=== PATIENT | male | born 1955 | race Caucasian/White ===

== ENCOUNTER → 2020-12-25 15:11 | Outpatient (BNVA) | payer BC, SELFPAY | PROVIDERS: Family Provider Internal Medicine Nephrology; Visit Provider Internal Medicine | DX: Z01.812 Encounter for preprocedural laboratory examination (principal); Z12.11 Encounter for screening for malignant neoplasm of colon; Z20.822 Contact with and (suspected) exposure to COVID-19 | CPT/HCPCS: 87635 ==

== ENCOUNTER 2021-01-01 08:05 | Day surgery (SDC) | payer BC, SELFPAY ==
[2020-12-28 14:06] VITALS: BMI 39.5
--- NOTE | 2021-01-01 08:15 | ANES.PREANE2 ---
Pre-Anesthetic Assessment Pre-Anesthetic Assessment: Height/Weight: Height 1.85 m Weight 136.078 kg Preop Diagnosis: screening Proposed Procedure: Operation Date: 01/01/21 09:30 Proposed Procedures p Colonoscopy 25705 Z12.11 Z86.010(Not Applicable) - Santos Sapp MD Familial anesthetic complications: none Was Beta Manuel taken within 24 hours: N/A Was Clonidine taken within 24 hours: N/A Last intake: > 8 hrs Social: Social History: Tobacco and No alcohol Exam: Pre-Anes Outpt Exam: alert, oriented x 3, clear to auscultation bilaterally and regular rate & rhythm Airway: Cervical ROM: WNL MP: 1 Dentition: Full Pulmonary: Pulmonary: COPD CV/HEM: CV/HEM: HTN GI: GI: GERD Metabolic: Metabolic: Morbid obesity Anesthetic Plan: ASA status: 2 Anesthesia: MAC Risk of > 500 ml blood loss (7ml/kg in children): No Data Anesthesia Cardiac Studies: No Data to Display
[2021-01-01 08:37] VITALS: BP 168/105; PULSE 97; RESP 18; TEMP 36.1; O2SAT 96
[2021-01-01] MEDS: sodium chloride 0.9% 1,000 ML 30 ML IV (08:46)
--- NOTE | 2021-01-01 08:52 | W.PM.OPSFHP ---
Same Day Surgery H&P Indication for Procedure/HPI DATE OF PROCEDURE: January 01, 2021 CHIEF COMPLAINT/INDICATIONFOR SURGICAL PROCEDURE: Screening PREOP DIAGNOSIS: screening PLANNED PROCEDRUE: Operation Date: 01/01/21 09:30 Proposed Procedures p Colonoscopy 65029 Z12.11 Z86.010(Not Applicable) - Santos Sapp MD Medications/Allergies* Home Medications Medication Instructions Recorded Confirmed Type hydrochlorothiazide 25 mg tablet 25 mg PO DAILY 12/20/20 01/01/21 History lisinopril 20 mg tablet 20 mg PO DAILY 12/20/20 01/01/21 History pantoprazole 40 mg tablet,delayed 40 mg PO DAILY 12/20/20 01/01/21 History release Allergies/Adverse Reactions Allergy/AdvReac Type Severity Reaction Status Date / Time Penicillins Allergy ALGY-Anaphy Verified 12/28/20 14:11 laxis Current Medications: Generic Name Dose Route Start Last Admin Trade Name Freq PRN Reason Stop Dose Admin Sodium Chloride 1,000 mls @ 30 mls/hr 01/01/21 08:15 01/01/21 08:46 Sodium Chloride 0.9% IV 01/02/21 08:14 30 mls/hr .Q24H PALAK Administration Pertinent Exam Findings alert, oriented x 3, clear to auscultation bilaterally, regular rate & rhythm, operative site marked and procedure specific exam findings Recommendations Surgery/Procedure today Coding Level of Care Code Acute [place] 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
[2021-01-01 09:55] VITALS: BP 122/69; PULSE 93; RESP 16; TEMP 36.3; O2SAT 93
[2021-01-01 10:13] VITALS: BP 135/71; PULSE 76; RESP 16; O2SAT 94
--- NOTE | 2021-01-01 18:52 | ANE.PACU2 ---
Inpatient post-anesthesia follow up: Airway intact: Yes Vital signs: Temperature 97.4 F Pulse Rate 76 Respiratory Rate 16 Blood Pressure 135/71 Pulse Oximetry 94 Oxygen Delivery Me thod Room Air Oxygen Flow Rate Fraction of Inspir ed Oxygen Hydration adequate: Yes Nausea and vomiting: No Pain level: 2 Mental status: Baseline
== END 2021-01-01 10:35 | disposition home or self-care (01) ==
PROVIDERS: Visit Provider Internal Medicine
PROC: 0DJD8ZZ Inspection of Lower Intestinal Tract, Via Natural or Artificial Opening Endoscopic (ICD-10-PCS; CPT 45378; principal; 2021-01-01 09:30)
DX: Z12.11 Encounter for screening for malignant neoplasm of colon (principal); D12.8 Benign neoplasm of rectum; K57.30 Diverticulosis of large intestine without perforation or abscess without bleeding; Z86.010 Personal history of colon polyps; Z88.0 Allergy status to penicillin
CPT/HCPCS: 45380; 88305; 96360; J2704; J7030

== ENCOUNTER → 2022-08-12 13:40 | Outpatient (BNVA) | payer BC, SELFPAY | PROVIDERS: PCP Family Medicine; Visit Provider Family Medicine | DX: I10 Essential (primary) hypertension (principal); Z76.89 Persons encountering health services in other specified circumstances; Z11.4 Encounter for screening for human immunodeficiency virus [HIV]; Z11.59 Encounter for screening for other viral diseases; Z12.5 Encounter for screening for malignant neoplasm of prostate; E83.52 Hypercalcemia; Z12.2 Encounter for screening for malignant neoplasm of respiratory organs; F17.200 Nicotine dependence, unspecified, uncomplicated; I49.9 Cardiac arrhythmia, unspecified; R06.09 Other forms of dyspnea; I48.91 Unspecified atrial fibrillation; I73.9 Peripheral vascular disease, unspecified; R39.9 Unspecified symptoms and signs involving the genitourinary system | CPT/HCPCS: 80053; 80061; 81003; 82306; 83036; 84443; 85025; 86803; 87806; G0103 ==

== ENCOUNTER 2022-08-27 13:35 | Outpatient (CLI) | payer BC, SELFPAY ==
--- NOTE | 2022-08-27 14:00 | USCV_ITS ---
Michael Joyner Age: 67 Gender: M : 1955 Exam Date: 08/27/2022 14:51 Ordering Phys: Ha Montes DO Technologist: [place] [facility] [place]: claudication FINDINGS Resting LAZARO of 0.52 on the right and 0.75 on the left Resting TBI of 0.4 on the right and 0.7 on the left PVR waveforms showing low amplitude waveforms on the right and normal amplitude waveform on the left with a loss of dicrotic notch CONCLUSIONS 1. Abnormal resting LAZARO and TBI on the right side suggesting moderately severe peripheral artery disease 2. Diminished resting LAZARO and normal resting TBI on the left side suggesting mild peripheral artery disease Dr Mercedes Estevez MD [facility] (Electronically Signed) Final Date: 27 August 2022 19:19 S
== END 2022-08-27 13:36 | disposition home or self-care (01) ==
PROVIDERS: PCP Family Medicine; Visit Provider Family Medicine
DX: I73.9 Peripheral vascular disease, unspecified (principal)
CPT/HCPCS: 93922

== ENCOUNTER 2022-09-02 14:54 | Outpatient (CLI) | payer BC, SELFPAY ==
--- NOTE | 2022-09-02 15:00 | USCV_ITS ---
Michael Joyner Age: 67 Gender: M : 1955 Exam Date: 09/02/2022 15:11 Ordering Phys: Ha Montes DO Technologist: Exam [place] [facility] [place] Indication: afib BP: 140 / 84 HR: 118 Rhythm: Sinus Technical Quality: Adequate MEASUREMENTS (Male / Female) Normal Values 2D ECHO LV Diastolic Diameter PLAX 2.7 cm 4.2 - 5.9 / 3.9 - 5.3 cm LV Systolic Diameter PLAX 2.0 cm IVS Diastolic Thickness 1.1 cm 0.6 - 1.0 / 0.6 - 0.9 cm IVS Systolic Thickness 1.4 cm LVPW Diastolic Thickness 1.0 cm 0.6 - 1.0 / 0.6 - 0.9 cm LVPW Systolic Thickness 1.2 cm LVOT Diameter 1.9 cm LV Ejection Fraction 2D Teich 50.7 % LV Ejection Fraction MOD 2C 54.4 % LV Ejection Fraction 2C AL 53.3 % LA Diameter 4.1 cm M-MODE Aortic Annulus Diameter 2.2 cm LA Ao Ratio MM 1.4 MV E Point Septal Separation 1.7 cm DOPPLER AV Peak Velocity 138.7 cm/s LVOT Peak Velocity 101.0 cm/s AV Area Cont Eq vti 2.3 cm squared AV Area Cont Eq pk 2.2 cm squared MV Area PHT 5.8 cm squared MV E' Velocity 55.0 cm/s Mitral E to MV E' Ratio 8.6 Mitral E to LV E' Lateral Ratio 9.3 Mitral E to LV E' Septal Ratio 8.2 TR Peak Velocity 221.7 cm/s TR Peak Gradient 19.7 mmHg TV Peak E Velocity 121.0 cm/s Right Atrial Pressure 3.0 mmHg Pulmonary Artery Systolic Pressu 22.7 mmHg RV Acceleration Time 0.1 s FINDINGS Left Ventricle Normal left ventricular size and systolic function, EF 56 %. No regional wall motion abnormalities. Right Ventricle The right ventricle is normal in size and function. Right Atrium The right atrium is normal in size. Left Atrium The left atrium is normal in size. Mitral Valve Mild mitral valve regurgitation. Aortic Valve No gross abnormalities noted Tricuspid Valve Mild tricuspid valve regurgitation. Pulmonic Valve No gross abnormalities noted Pericardium Normal pericardium without effusion. Aorta Normal aortic annulus size. IVC The inferior vena cava appears normal. CONCLUSIONS Normal left ventricular size and systolic function, EF 56 %. No regional wall motion abnormalities. Mild mitral valve regurgitation. Mild tricuspid valve regurgitation. There is no pericardial effusion. No similar previous studies are available for comparison Dr Mercedes Estevez MD [facility] (Electronically Signed) Final Date: 02 September 2022 17:56 S
== END 2022-09-02 14:55 | disposition home or self-care (01) ==
LOC: RAD 14:57
PROVIDERS: PCP Family Medicine; Visit Provider Family Medicine
DX: I73.9 Peripheral vascular disease, unspecified (principal); I48.91 Unspecified atrial fibrillation; R06.09 Other forms of dyspnea; I34.0 Nonrheumatic mitral (valve) insufficiency; I07.1 Rheumatic tricuspid insufficiency
CPT/HCPCS: 93306

== ENCOUNTER 2022-09-05 16:33 | Outpatient (CLI) | payer BC, SELFPAY ==
--- NOTE | 2022-09-05 17:00 | CT_ITS ---
WS: [id number] LDCT LUNG CANCER SCREENING HISTORY: LUNG CA SCREENING TECHNIQUE: Axial imaging performed from the apices to 1 cm below the costophrenic angles. Coronal and sagittal reformats are submitted with axial MIP series. All CT scans at [facility] use at least one of these dose optimization techniques: automated exposure control; mA and/or kV adjustment per patient size (includes targeted exams where dose is matched to clinical indication); or iterativ e reconstruction. DLP: 154.87 mGy.cm DIvol: Mean CTDIvol: 3.80 (mGy) COMPARISON: None available. Diagnostic quality: Satisfactory Lungs: Complex nodule with both cystic and nodular components and groundglass attenuation in the supe rior segment LEFT lower lobe. Subsolid nodule measures 2.1 x 2.4 and extends over a length of 2.9 cm. Additional cystic area in the central RIGHT upper lobe which appears more likely to be bronchial dil atation but also needs to be further evaluated. No additional masses or nodules. No pneumonia. No end obronchial lesions. Heart: Normal size heart with no pericardial effusion.. Moderate to advanced coronary artery calcific ations. Other findings: No adenopathy. Mild atherosclerosis aorta. Normal size pulmonary artery. Small hiatal hernia. Splenic granulomata. Mild thickening of the LEFT adrenal gland. Hounsfield units are low sug gesting adenoma. Increase in thoracic kyphosis. CT/CT lung screening [id number] IMPRESSION: LUNG-RADS: 4BS-Suspicious with Significant Findings FOLLOW UP: PET/CT recommended OTHER FINDINGS (S MODIFIER): Moderate to advanced coronary artery calcification s. Alternatively if PET/CT is not performed a follow-up chest CT with contrast in 3 months may be appropriate.
== END 2022-09-05 16:34 | disposition home or self-care (01) ==
LOC: RAD 16:34
PROVIDERS: PCP Family Medicine; Visit Provider Family Medicine
DX: Z12.2 Encounter for screening for malignant neoplasm of respiratory organs (principal); R91.1 Solitary pulmonary nodule; I25.10 Atherosclerotic heart disease of native coronary artery without angina pectoris; F17.200 Nicotine dependence, unspecified, uncomplicated
CPT/HCPCS: 71271; 80053; 80061; 81003; 82306; 83036; 84443; 85025; 86803; 87806; G0103

== ENCOUNTER → 2022-09-11 15:21 | Outpatient (BNVA) | payer BC, SELFPAY | PROVIDERS: PCP Family Medicine; Visit Provider Internal Medicine Cardiovascular Disease | DX: R07.9 Chest pain, unspecified (principal); R06.02 Shortness of breath | CPT/HCPCS: 93005 ==

== ENCOUNTER 2022-09-18 10:14 | Outpatient (CLI) | payer BC, SELFPAY ==
[2022-09-18 10:37] VITALS: BMI 48.6
--- NOTE | 2022-09-18 10:40 | ECG_ITS ---
[facility] Test Date: 2022-09-18 Pat Name: Michael Joyner Department: Room: Gender: Male Line Operator: Jaz Guadarrama : 1955 Requested By: Mercedes Estevez Order Number: [id number] Khloe MD: Kanwal Ren M.D. Interpretive Statements NAME OF STUDY: LEXISCAN SESTAMIBI STRESS TEST INDICATION: Shortness of Breath PROCEDURE: At the baseline, the blood pressure was 131/92 mmHg with a heart rate of 99 bpm. The electrocardiogram showed atrial fibrillation, normal axis with nonspecific ST-T wave changes. The Lexiscan was infused over a period of 20 seconds. A total of 0.4 milligrams of Lexiscan was infused. The stress phase was continued for a total of 5 minutes. Heart rate at the end of the stress phase was 106 bpm with a blood pressure 122/92 mm. The EKG at the peak infusion revealed no significant ST-T wave changes. Sestamibi was injected 20 seconds after the Lexiscan infusion. Blood pressure at the end of the recovery phase was 146/94 mmHg with a heart rate of 102 beats per minute. CONCLUSION: 1. No significant EKG changes with the LexiScan infusion. 2. No LexiScan induced chest pain or cardiac arrhythmia. 3. Normal blood pressure and heart rate response. 4. Sestamibi/sestamibi perfusion scan pending; see separate report. Electronically Signed On 09-22-2022 11:48:30 CDT by Kanwal Ren M.D. [id number]
--- NOTE | 2022-09-18 10:40 | NMCV_ITS ---
NM katie perf SPECT r/s* [id number] Michael Joyner Age: 67 Gender: M : 1955 Exam Date: 09/18/2022 11:20 Ordering Phys: Mercedes Estevez MD ([email or web address]) Technologist: THERESE Castrejon Exam Location: [facility] Indications: CORONARY ANGIOPLASTY STATUS STRESS TEST Please [facility] IMAGE PROTOCOL Rest/Stress 1 Lexiscan Day Radiopharmaceutical Dose (mCi) Administration Site Administered by Rest: Tc-99m 11.0 IV THERESE Castrejon Sestamibi Stress:Tc-99m 32.8 IV THERESE Escalante Sestamibi Rest: 18-Sep-2022 60 Discovery 630 Stress: 18-Sep-2022 30 Discovery 630 0.4mg Lexiscan. Images obtained in supine and prone position. SPECT RESULTS Technical Quality: Excellent Raw Data Analysis: Normal Image Corrections: No attenuation or motion correction applied Summed Stress Score: 1 Summed Rest Score: 0 Summed Difference Score: 1 PERFUSION FINDINGS A small area of slightly decreased tracer uptake with reversibility was noted in the apical inferior wall region. However with the prone imaging, no significant reversible defects are noted FUNCTIONAL RESULTS (calculated via Gated SPECT) Stress Image LV EF (%): 52 Stress EDV (mL):102 TID: 1.22 Stress ESV (mL):49 FUNCTIONAL FINDINGS: Segmental wall motion analysis revealing no gross wall motion abnormalities. The transient significant dysplasia was found to be elevated to 1.22 IMPRESSIONS 1. Myocardial perfusion imaging revealing a small area of reversible defect in the apical inferior region, suggestive of ischemia in the left circumflex artery territory. However because inconsistent with the prior imaging, the reliability is questionable. Elevated transient ischemic dilatation ratio also may suggest ischemia. However the positive predictive value of this finding is limited. Clinical correlation recommended 2. Normal ejection fraction 52%. 3. LV wall motion analysis revealing no gross wall motion abnormalities. 4. Volume is in the upper limit of normal size. 5. No similar previous studies are available for comparison Dr Mercedes Estevez MD [facility] (Electronically Signed) Final Date: 18 September 2022 20:30 S
[2022-09-18] MEDS: regadenoson 0.4 Mg/5 ml Syringe IVP (11:53)
[2022-09-18 12:30] VITALS: BP 146/94; PULSE 102
== END 2022-09-18 10:15 | disposition home or self-care (01) ==
LOC: CDL 10:15
PROVIDERS: PCP Family Medicine; Visit Provider Internal Medicine Cardiovascular Disease
DX: I48.91 Unspecified atrial fibrillation (principal); R06.02 Shortness of breath
CPT/HCPCS: 78452; 80048; 83880; 86787; 93017; 96374; A9500; J2785

== ENCOUNTER 2022-09-25 12:55 | Outpatient (CLI) | payer BC, SELFPAY ==
--- NOTE | 2022-09-25 13:30 | USCV_ITS ---
Michael Joyner Age: 67 Gender: M : 1955 Exam Date: 09/25/2022 13:05 Ordering Phys: Mercedes Estveez MD ([email or web address]) Technologist: CT Exam Location: [facility] [place] Indication: BRUIT Risk Factors: Previous Vascular Surgery: Right Brachial BP: / Left Brachial BP: / Right Left Velocity (cm/s) Spectral Plaque Velocity (cm/s) Spectral Plaque Syst/Diast Broadening Syst/Diast Broadening 76.90/ 16.30 Prox CCA 72.10 / 23.00 72.10/ 21.10 Mid CCA 72.10 / 21.90 68.20/ 17.30 Distal CCA 74.80 / 20.80 80.00/ 25.20 Prox ICA 67.50 / 21.40 88.40/ 25.50 Mid ICA 56.30 / 15.30 76.40/ 30.60 Distal ICA 52.50 / 21.60 114.40 ECA 217.30 1.15 ICA/CCA 0.90 Antegrade Vertebral Occluded 71.70/ 28.20 cm/s / cm/s Tri Subclavian Tri 97.60 158.3 0 FINDINGS LT ECA STENOSIS, LEFT VERT APPEARS OCCLUDED CONCLUSIONS Right ICA stenosis <50%. Moderate atheromatous plaque right carotid bulb/ICA. Left ICA stenosis <50%. Moderate atheromatous plaque left carotid bulb/ICA. Normal antegrade Doppler flow noted in the right vertebral artery. Occluded Left vertebral artery Colby Ibarra MD (Electronically Signed) Final Date: 26 September 2022 09:53 S
== END 2022-09-25 12:56 | disposition home or self-care (01) ==
PROVIDERS: PCP Family Medicine; Visit Provider Internal Medicine Cardiovascular Disease
DX: I77.9 Disorder of arteries and arterioles, unspecified (principal); I65.23 Occlusion and stenosis of bilateral carotid arteries; I65.02 Occlusion and stenosis of left vertebral artery
CPT/HCPCS: 93880

== ENCOUNTER 2022-10-05 06:08 | Outpatient (CLI) | payer BC, SELFPAY ==
--- NOTE | 2022-10-05 09:30 | PETR_ITS ---
PROCEDURE INFORMATION: Exam: PET/CT Skull Base to Mid-thigh Exam date and time: 10/05/2022 10:03 AM Age: 67 years old Clinical indication: Abnormal findings; Solitary pulmonary nodule; Additional info: Lung nodule LABS AND CLINICAL REPORTS: Glucose: 105 mg/dl Treatment strategy for malignancy (PET staging): Initial Staging (PI) TECHNIQUE: Imaging protocol: Following at least four-hour fasting and following the injection of radiopharmaceutical, low dose CT images were obtained. Then, PET images were obtained. Attenuation corrected images were constructed using the CT scan. Fused images of PET and CT were reviewed. The standardized uptake values (SUV) reported below are maximum values within a region of interest, expressed in gm/ml. Exam includes orbital meatal line to mid-thigh. Radiopharmaceutical: 16.1 mCi F-18 FDG (Fluorodeoxyglucose), IV. Time of imaging post radiopharmaceutical administration: 1 hour Injection site: Right antecubital vein COMPARISON: CT lung screening [id number] 09/05/2022 4:41 PM FINDINGS: Brain: Visualized brain has normal physiologic uptake. Salivary glands: There are 2 FDG avid nodules in the inferior most aspect of the left parotid gland measuring 1.9 x 1.3 cm and 1.3 x 1.2 cm on axial images 24 and 26 with increased uptake of 6.7 SUV. Pharynx: No abnormal uptake. Larynx: No abnormal uptake. Lungs, pleura and trachea: No abnormal uptake. 2.4 x 1.4 cm part solid opacity in the superior segment of the left lower lobe on axial image 53 measures 1.4 SUV. Non FDG avid small peripheral triangular shaped opacity in the right lower lobe on axial image 80 new since 09/05/2022 is compatible with benign finding, likely a small atelectasis. There is stable 8 mm calcified granuloma in the left lower lobe. There is small right pleural effusion new since 09/05/2022. Heart: Normal physiologic uptake. There is no cardiomegaly. Coronary artery calcification is present. There is no pericardial effusion. Mediastinal space: No abnormal uptake. Liver: No abnormal uptake. Gallbladder and bile ducts: No abnormal uptake. No calcified gallstones. Pancreas: No abnormal uptake. Spleen: No abnormal uptake. The spleen is normal in size with a few small calcified granulomas. Adrenal glands: No abnormal uptake. Lipid rich benign 3.4 x 2.4 cm left adrenal cortical adenoma. Stable benign thickening of the right adrenal measuring up to 1 cm with no nodules. Kidneys and ureters: Normal physiologic uptake. No hydronephrosis. Stomach and bowel: No abnormal uptake. Diverticulosis of the left colon with no signs of acute diverticulitis. Vasculature: No abnormal uptake. No aortic aneurysm. Lymph nodes: No abnormal uptake. No lymphadenopathy in the head, neck, chest, abdomen, pelvis, and extremities. Sequela of exposure to granulomatous disease with small calcified left hilar lymph nodes. Bones/joints: No abnormal uptake in the visualized axial and appendicular skeleton. Soft tissues: No abnormal uptake in the visualized head, neck, chest, abdomen, pelvis, and extremities. [facility] SUB[facility] [id number] IMPRESSION: 1. No abnormal radiotracer uptake in the lungs. About 2.4 cm part solid opacity in the superior segment of the left lower lobe found on CT lung screening on 09/05/2022 measures 1.4 SUV. In comparison with 09/05/2022 there are new findings in the right chest including small right pleural effusion and small atelectasis in the right lower lobe. 2. 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 Correlation with ultrasound is recommended.
== END 2022-10-05 06:09 | disposition home or self-care (01) ==
LOC: RAD 10-07 06:08
PROVIDERS: PCP Family Medicine; Visit Provider Internal Medicine Pulmonary Disease
DX: R91.1 Solitary pulmonary nodule (principal)
CPT/HCPCS: 78815; A9552

== ENCOUNTER 2022-10-07 14:12 | Outpatient (CLI) | payer BC, SELFPAY ==
[2022-10-07 15:02] LABS: Alanine Aminotransferase 38 U/L (0-41); Albumin Level 3.9 g/dL (3.5-5.2); Alkaline Phosphatase 98 U/L (40-130); Aspartate Amino Transferase 29 U/L (0-40); Blood Urea Nitrogen 12 mg/dL (8-23); Calcium 9.3 mg/dL (8.5-10.5); Carbon Dioxide 24 mmol/L (22-29); Chloride 106 mmol/L (98-107); Globulin 2.9 g/dL (1.3-4.6); Glomerular Filtration Rate 84.7 mL/min (90-130); Glucose 104 mg/dL (65-115); NT Pro B Type Natriuretic Pept 1374 pg/mL (0-125); Osmolality Calculated 292 mOsm/kg (285-295); Sodium 141 mmol/L (136-145); Total Bilirubin 0.5 mg/dL (0.15-1.2); Total Protein 6.8 g/dL (6.6-8.7)
[2022-10-07 15:03] LABS: Anion Gap 15.3 (5-19); Potassium 4.3 mmol/L (3.5-5.1)
== END 2022-10-07 14:13 | disposition home or self-care (01) ==
PROVIDERS: PCP Family Medicine; Visit Provider Internal Medicine Cardiovascular Disease
DX: R09.89 Other specified symptoms and signs involving the circulatory and respiratory systems (principal); R91.1 Solitary pulmonary nodule; I10 Essential (primary) hypertension
CPT/HCPCS: 36415; 80053; 83880

== ENCOUNTER 2022-11-05 13:46 | Outpatient (CLI) | payer BC, SELFPAY ==
--- NOTE | 2022-11-05 14:30 | US_ITS ---
WS: [id number] INDICATION: LEFT parotid nodules TECHNIQUE: Ultrasound parotid glands. FINDINGS: Comparison PET/CT 10/05/2022. 2 well-circumscribed hypoechoic nodules in the LEFT parotid correspond to the PET/CT findings. Small amount of posterior acoustic enhancement. Largest nodules measure 1.7 x 1.8 x 1.1 cm and 1.3 x 1.2 x 1.1 cm suspicious for parotid neoplasm. Recommend ENT consultation. FDG activity can be seen with bot h benign and malignant neoplasms including parotid adenomas. IMPRESSION: FDG avid hypoechoic parotid nodules described above suspicious for neoplasm. Differential considerations include benign and malignant parotid neoplasms including parotid adenoma. Recommend E NT consultation.
== END 2022-11-05 13:47 | disposition home or self-care (01) ==
LOC: RAD 13:48
PROVIDERS: PCP Family Medicine; Visit Provider Family Medicine
DX: K11.1 Hypertrophy of salivary gland (principal); R94.02 Abnormal brain scan
CPT/HCPCS: 76536

== ENCOUNTER 2023-01-06 06:01 | Day surgery (SDC) | payer BC, SELFPAY ==
[2023-01-06 06:05] VITALS: BMI 35.1
[2023-01-06 06:15] VITALS: BP 162/93; PULSE 75; RESP 18; TEMP 36.3; O2SAT 96
[2023-01-06] MEDS: sodium chloride 0.9% 1,000 ML 30 ML IV (06:25)
--- NOTE | 2023-01-06 06:25 | ECG_ITS ---
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 Measurements Intervals [place] Rate: 80 P: 0 VT: 0 QRS: 46 QRSD: 94 T: 71 QT: 382 QTc: 443 Interpretive Statements ATRIAL FIBRILLATION LATERAL MYOCARDIAL INFARCTION , OF INDETERMINATE AGE [40+ ms Q WAVE AND/OR ST/T ABNORMALITY IN I/aVL/V5/V6] Compared to ECG 09/11/2022 15:26:38 Myocardial infarct finding now present Electronically Signed On 01-06-2023 9:55:29 SEAM RUBBING MACHINE OPERATOR by Crow Farias M.D. [id number]
--- NOTE | 2023-01-06 06:48 | ANES.PREANE2 ---
Pre-Anesthetic Assessment Height/Weight: Height 1.85 m Weight 120.656 kg Temp Pulse Resp BP Pulse Ox O2 Del Method 97.4 F L 75 18 162/93 96 Room Air 01/06/23 06:15 01/06/23 06:15 01/06/23 06:15 01/06/23 06:15 01/06/23 06:15 01/06/23 06:15 Preop Diagnosis: A fib Operation Date: 01/06/23 07:00 Proposed Procedures p Cardioversion 96566,I48.2,R06.09(Not Applicable) - Mercedes Estevez MD Familial anesthetic complications: none Was Beta Manuel taken within 24 hours: Yes Was Clonidine taken within 24 hours: N/A Last intake: Intake Last Liquid Date 01/05/23 Last Liquid Time 21:00 Last Solid Date 01/05/23 Last Solid Time 20:00 Last Intake: 21:00 Social Alcohol and Tobacco 1.5 pack(s) per day 40+ pack years Exam alert, oriented x 3 and clear to auscultation bilaterally Irreg HB noted Airway Submandibular: within normal limits Cervical ROM: within normal limits Mallampati: Class II Dentition: full Pulmonary Chronic Obstructive Pulmonary Disease and Exertional Dyspnea CV/HEM Atrial Fibrillation, Congestive Heart Failure and Hypertension None reported Hepatic None reported GI Gastroesophageal Reflux Disease (controlled) Metabolic Morbid Obesity Musc/skel Lower Back Pain Neuropsych None reported Anesthetic Plan ASA status: 3 Anesthesia: MAC Risk of > 500 ml blood loss (7ml/kg in children): No Medications/Allergies Home Medications Medication Instructions Recorded Confirmed Last Taken Type pantoprazole 40 mg tablet,delayed 40 mg PO DAILY 12/20/20 01/03/23 01/06/23 History release (Protonix) tamsulosin 0.4 mg capsule 0.4 mg PO DAILY #90 caps 08/13/22 01/03/23 01/03/23 Rx metoprolol succinate 50 mg 50 mg PO DAILY #90 tabs 09/11/22 01/03/23 01/06/23 Rx tablet,extended release 24 hr furosemide 20 mg tablet 20 mg PO DAILY #90 tabs 09/13/22 01/03/23 01/06/23 Rx potassium chloride 8 mEq 8 meq PO DAILY #90 tabs 09/13/22 01/03/23 01/06/23 Rx tablet,extended release apixaban 5 mg tablet 5 mg PO BID #180 tabs 09/23/22 01/03/23 01/06/23 Rx tiotropium bromide 18 mcg capsule 1 cap inhalation DAILY #90 09/24/22 01/03/23 01/03/23 Rx with inhalation device (Spiriva inhalations with HandiHaler) lisinopril 40 mg tablet 40 mg PO DAILY #90 tabs 12/12/22 01/03/23 01/05/23 Rx amiodarone 400 mg tablet 200 mg PO DAILY 01/03/23 01/03/23 01/06/23 History Allergies Allergy/AdvReac Type Severity Reaction Status Date / Time Penicillins Allergy ALGY-Anaphy Verified 01/03/23 10:09 laxis Current Medications Generic Name Dose Route Start Last Admin Trade Name Freq PRN Reason Stop Dose Admin Sodium Chloride 1,000 mls @ 30 mls/hr 01/06/23 06:15 01/06/23 06:25 Sodium Chloride 0.9% IV 01/07/23 06:14 30 mls/hr .Q24H PALAK Administration PFSH Anesthesia Family History Mother Cancer Breast CAD (coronary artery disease) Father Hypertension Cancer Colon and Thyroid Social History Smoking and tobacco/nicotine status: current every day tobacco/nicotine user cigarettes Packs smoked per day: 1.5 Second hand smoke exposure: No Alcohol intake: current Alcohol intake frequency: holidays/special occasions only Substance/Drug Use: never Adopted: No Caregiver/support person: No Lives independently: Yes Data Anesthesia Cardiac Studies: Echocardiogram 09/02/22 Sestamibi Stress Test (Cardiology) 09/18/22
--- NOTE | 2023-01-06 07:11 | W.PM.OPSUD ---
Surgery/Procedure H&P Update DATE OF PROCEDURE: January 06, 2023 DATE H&P PERFORMED: 12/16/22 H&P UPDATE INFORMATION: I have reviewed H&P completed within last 30 days, I have examined patient prior to procedure and No changes to prior documentation PREOP DIAGNOSIS: A fib PRIMARY INDICATION FOR PROCEDURE: Pt with symptomatic atrial fibrillation PLANNED PROCEDURE: Operation Date: 01/06/23 07:00 Proposed Procedures p Cardioversion 64434,I48.2,R06.09(Not Applicable) - Mercedes Estevez MD
--- NOTE | 2023-01-06 07:38 | ECG_ITS ---
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 Measurements Intervals [place] Rate: 63 P: 51 HI: 209 QRS: 27 QRSD: 86 T: 41 QT: 448 QTc: 459 Interpretive Statements SINUS RHYTHM Compared to ECG 01/06/2023 06:34:39 Atrial fibrillation no longer present Myocardial infarct finding no longer present Electronically Signed On 01-06-2023 9:55:26 BUNCHER HAND by Crow Farias M.D. [id number]
[2023-01-06 07:39] VITALS: BP 139/70; PULSE 64; RESP 18; TEMP 36.1; O2SAT 96
[2023-01-06 07:58] VITALS: BP 132/77; PULSE 64; RESP 17; O2SAT 98
--- NOTE | 2023-01-06 12:43 | ANE.PACU2 ---
Inpatient post-anesthesia follow up: Airway intact: Yes Vital signs: Temperature 97.0 F Pulse Rate 64 Respiratory Rate 17 Blood Pressure 132/77 Pulse Oximetry 98 Oxygen Delivery Me thod Room Air Oxygen Flow Rate Fraction of Inspir ed Oxygen Hydration adequate: Yes Nausea and vomiting: No Pain level: 2 Mental status: Baseline
--- NOTE | 2023-01-07 23:03 | PM.OP ---
Operative Report Date of procedure: January 07, 2023 Surgeon: Mercedes Estevez MD Procedure: Electrical cardioversion report Preprocedure diagnoses: Atrial fibrillation/hypertension. Brief history: 66-year-old white male with a recently diagnosed atrial fibrillation was found to be symptomatic with development of heart failure. He was started on amiodarone and continued to be in atrial fibrillation. For further management of his condition, electrical cardioversion was recommended. Location of the procedure: GI Lab Electrode application: Anteroposterior Electrical energy applied: 100 J of biphasic Number of shocks: Single Final rhythm: Sinus rhythm Final blood pressure: 136/78 Complications: None Recommendation(s): Continue on the amiodarone
== END 2023-01-06 08:04 | disposition home or self-care (01) ==
PROVIDERS: PCP Family Medicine; Visit Provider Internal Medicine Cardiovascular Disease
PROC: 5A2204Z Restoration of Cardiac Rhythm, Single (ICD-10-PCS; principal; 2023-01-06 07:00)
DX: I48.91 Unspecified atrial fibrillation (principal); I10 Essential (primary) hypertension; J44.9 Chronic obstructive pulmonary disease, unspecified; I11.0 Hypertensive heart disease with heart failure; I50.9 Heart failure, unspecified; F17.210 Nicotine dependence, cigarettes, uncomplicated
CPT/HCPCS: 92960; 93005; J2704; J7030

== ENCOUNTER → 2023-01-13 15:16 | Outpatient (BNVA) | payer BC, SELFPAY | PROVIDERS: PCP Family Medicine; Visit Provider Nurse Practitioner Family | DX: I48.91 Unspecified atrial fibrillation (principal) | CPT/HCPCS: 93005 ==

== ENCOUNTER 2023-05-06 14:48 | Observation (INO) | payer BC, SELFPAY ==
[2023-05-06] VITALS (13 sets, daily range): BP systolic 136–203; BP diastolic 65–100; PULSE 60–73; RESP 15–18; TEMP 36.1–36.8; O2SAT 92–99; BMI 36.3
[2023-05-06] MEDS: sodium chloride 0.9% 1,000 ML 30 ML IV (10:35)
--- NOTE | 2023-05-06 10:42 | ANES.PREANE2 ---
Pre-Anesthetic Assessment Height/Weight: Height 1.85 m Weight 125.191 kg Temp Pulse Resp BP Pulse Ox O2 Del Method 98.3 F 73 18 203/95 96 Room Air 05/06/23 10:16 05/06/23 10:16 05/06/23 10:16 05/06/23 10:16 05/06/23 10:16 05/06/23 10:37 Operation Date: 05/06/23 11:40 Proposed Procedures p Left Parotidectomy 06802,r22.1,d37.030(Left) - Jameel Collins MD Last intake: Intake Last Liquid Date 05/05/23 Last Liquid Time 20:00 Last Solid Date 05/05/23 Last Solid Time 20:00 Social Tobacco Exam alert, oriented x 3, clear to auscultation bilaterally and regular rate & rhythm Airway Submandibular: within normal limits Cervical ROM: within normal limits Mallampati: Class I Pulmonary None reported CV/HEM Atrial Fibrillation in NSR now and on meds None reported Anesthetic Plan ASA status: 3 Anesthesia: Anesthesia Evaluation and General Risk of > 500 ml blood loss (7ml/kg in children): No Medications/Allergies Home Medications Medication Instructions Recorded Confirmed Last Taken Type pantoprazole 40 mg tablet,delayed 40 mg PO DAILY 12/20/20 05/05/23 05/06/23 08:35 History release (Protonix) tamsulosin 0.4 mg capsule 0.4 mg PO DAILY #90 caps 08/13/22 05/05/23 01/03/23 Rx metoprolol succinate 50 mg 50 mg PO DAILY #90 tabs 09/11/22 05/05/23 05/06/23 08:35 Rx tablet,extended release 24 hr furosemide 20 mg tablet 20 mg PO DAILY #90 tabs 09/13/22 05/05/23 05/06/23 08:35 Rx potassium chloride 8 mEq 8 meq PO DAILY #90 tabs 09/13/22 05/05/23 05/06/23 08:35 Rx tablet,extended release apixaban 5 mg tablet 5 mg PO BID #180 tabs 09/23/22 05/05/23 05/02/23 Rx tiotropium bromide 18 mcg capsule 1 cap inhalation DAILY #90 09/24/22 05/05/23 05/06/23 08:35 Rx with inhalation device (Spiriva inhalations with HandiHaler) lisinopril 40 mg tablet 40 mg PO DAILY #90 tabs 12/12/22 05/05/23 05/05/23 Rx amiodarone 200 mg tablet 200 mg PO DAILY #90 tabs 01/13/23 05/05/23 05/06/23 08:35 Rx Allergies Allergy/AdvReac Type Severity Reaction Status Date / Time Penicillins Allergy ALGY-Anaphy Verified 03/13/23 13:59 laxis Current Medications Generic Name Dose Route Start Last Admin Trade Name Freq PRN Reason Stop Dose Admin Sodium Chloride 1,000 mls @ 30 mls/hr 05/06/23 10:15 05/06/23 10:35 Sodium Chloride 0.9% IV 05/07/23 10:14 30 mls/hr .Q24H PALAK Administration PFSH Anesthesia Family History Mother Cancer Breast CAD (coronary artery disease) Father Hypertension Cancer Colon and Thyroid Social History Smoking and tobacco/nicotine status: current every day tobacco/nicotine user cigarettes Packs smoked per day: 1.5 Second hand smoke exposure: No Alcohol intake: current Alcohol intake frequency: holidays/special occasions only Substance/Drug Use: never Adopted: No Caregiver/support person: No Lives independently: Yes Data Anesthesia Cardiac Studies: Echocardiogram 09/02/22 Sestamibi Stress Test (Cardiology) 09/18/22
--- NOTE | 2023-05-06 11:22 | W.PM.OPSUD ---
Surgery/Procedure H&P Update DATE OF PROCEDURE: May 06, 2023 DATE H&P PERFORMED: 04/11/23 PRIMARY INDICATION FOR PROCEDURE: Left parotid masses PLANNED PROCEDURE: Operation Date: 05/06/23 11:40 Proposed Procedures p Left Parotidectomy 73651,r22.1,d37.030(Left) - Jameel Collins MD
[2023-05-06] MEDS: clindamycin 900 MG/50 ML PREMIX 100 MG IV (11:28)
[2023-05-06] MEDS: lidocaine-epi 1% 20 mL INJ INJECTION (12:35)
[2023-05-06] MEDS: clindamycin 600 MG/50 ML PREMIX 100 MG XX (12:35)
[2023-05-06] MEDS: neomycin-poly-bacitracin oint 28 gm 1 APPLIC TOPICAL (14:08)
--- NOTE | 2023-05-06 14:35 | PM.OP ---
Operative Report Date of procedure: May 06, 2023 Pre-op diagnosis: Left parotid masses Post-op diagnosis: same Post-op diagnosis: Same Post-op findings: Mass of the left tail of parotid abutting the left sternocleidomastoid muscle Procedure done: Left superficial parotidectomy Implants: None Specimens removed/disposition: Left tail of parotid mass Pathology: Left tail of parotid mass Surgeon: Jameel Collins Surgeon: Jameel Collins MD Telecommunication Tower Technician: Boston Blandon Anesthesia: General Estimated blood loss (mL): 10 IV fluids: 1300 mL Complications: None Findings: Left tail of parotid mass abutting the left sternocleidomastoid muscle Brief History: 67 yo wm with a h/o left tail of parotid mass/masses who desires surgical excision. Procedure: The patient was identified in the preoperative holding area and was taken to the operating where he was placed on the operating table in the supine position. Anesthesia was obtained with general endotracheal anesthesia and the table was then turned 180 degrees. A modified Mars incision was marked on the patient's left face and the Neurvana nerve monitoring system was placed on the patient. The incision was then injected local anesthesia and he was prepped and draped in the usual sterile fashion. A 15 blade was used to make the incision described above and which was then carried down to the subcutaneous tissues using sharp scissors and Metzenbaum scissors. An anterior based flap was then raised over the left face exposing the left parotid gland and a broad dissection was begun over the entire posterior aspect of the left parotid gland. The parotid was from the sternocleidomastoid muscle and the greater auricular nerve was identified, and was dissected free from the surrounding tissues. The deepest part of the incision was developed at the tympanomastoid suture line as the parotid gland was carefully retracted anteriorly. At this point the trunk of the facial nerve was identified both visually and electrically and was traced out while dissecting free the overlying parotid tissue. The parotid masses were identified left left tail of parotid region and the lower division of the facial nerve was dissected free and and preserved in place while dissecting the overlying parotid tissue off of the facial nerve. Once the left tail of parotid mass removed with a good cuff of normal-appearing parotid tissue, hemostasis was achieved with bipolar cautery. The wound was then irrigated with copious amount normal saline and thrombin soaked pledgets of Gelfoam were then placed in the wound. A drain was then placed in the wound and the wound was closed with interrupted 4 Monocryl sutures subcu and a running 5-0 fast-absorbing gut on the skin. The wound was then cleaned and covered with triple antibiotic ointment. At this point the procedure was terminated and control of the patient was returned to anesthesia where he underwent an uneventful reversal of anesthesia and extubation and was taken to the recovery in stable condition. There were no operative or anesthetic complications.
--- NOTE | 2023-05-06 15:43 | ANE.PACU2 ---
Inpatient post-anesthesia follow up: Vital signs: Temperature 98.0 F Pulse Rate 67 Respiratory Rate 16 Blood Pressure 171/81 Pulse Oximetry 92 Oxygen Delivery Me thod Room Air Oxygen Flow Rate 8 Fraction of Inspir ed Oxygen Additional Comments: no apparent anesthetic complications noted
[2023-05-06] MEDS: lactated ringers 1,000 ML 125 ML IV (15:59)
[2023-05-06] MEDS: famotidine 20 mg/2 mL INJ IVP (15:59)
[2023-05-06] MEDS: ipratropium 0.5 mg/2.5 mL Neb INHALATION ×2 (16:15→19:35)
--- NOTE | 2023-05-06 17:03 | PC.NURSE ---
BP 207/95. Dr. Joyner states that he took his Metoprolol this am, but held his Lisinopril. Dr. Collins advised of above. States that he will round on pt. shortly. Gives order to give dose of Lisinopril 40mg PO now.
[2023-05-06] MEDS: lisinopril 20 mg Tablet 40 MG PO (17:18)
[2023-05-06] MEDS: docusate sodium 100 mg Capsule PO (17:18)
[2023-05-06] MEDS: clindamycin 600 MG/50 ML PREMIX 100 MG IV (18:25)
--- NOTE | 2023-05-06 18:42 | P.PN_ITS ---
Subjective Subjective: 67 yo wm who is night of surgery s/p lef t superficial parotidectomy who is doing well. The patient's blood pressure has been elevated today, but he wasn't able to take all of his BP meds. He is asymptomatic. Medications: Reviewed: Yes Vitals/I&O/Wt Last Vital Signs Temp 97.8 F 05/06/23 16:42 Pulse 60 05/06/23 16:42 Resp 15 05/06/23 16:42 BP 201/100 05/06/23 16:42 Pulse Ox 93 05/06/23 16:42 O2 Del Method Room Air 05/06/23 16:42 O2 Flow Rate 8 05/06/23 14:35 05/06/23 05/06/23 05/06/23 06:59 14:59 22:59 Intake Total 1400 / 1400 Output Total 910 / 910 2 / 912 Balance 490 / 490 -2 / 488 Weight last 48 hrs Weight 125.191 kg Weight 125.191 kg Physical Exam Const: COMMON NORMALS: no acute distress, patient oriented x3 and well nourished GENERAL APPEARANCE: cooperative, comfortable and well developed HENMT: COMMON NORMALS: normocephalic, atraumatic and Normal external nose present HEAD & SCALP: normocephalic and atraumatic FACE & SINUS: normal facial exam, face symmetric (The left facial wound is intact without swelling. ) and other (The patient's facial nerve function is normal bilaterally.) NOSE: Normal external nose present Eye: COMMON NORMALS: conjunctivae normal and no scleral icterus GENERAL EYE: appearance normal, both eyes and all related structures CONJUNCTIVA: Yes conjunctivae normal Neck/C-Spine: COMMON NORMALS: no lymphadenopathy Chest: COMMONS NORMALS: normal inspection of the chest Resp: COMMON NORMALS: normal respiratory effort, No retractions, No use of accessory muscles and clear to auscultation bilaterally AUSCULTATION: clear to auscultation bilaterally Cardio: COMMON NORMALS: regular rate, regular rhythm and No murmurs present (Cardio) RATE: regular rate RHYTHM: regular rhythm GI: COMMON NORMALS: Normal to inspection, nondistended, normoactive bowel sounds present Extremity: COMMON NORMALS: normal to inspection Neuro: COMMON NORMALS: patient oriented x3 Urinary Catheter Management: Kinney: Cath Placed During This Visit: yes, but has since been removed by the nurse Urinary Catheter Date of Insertion: 05/06/23 Urinary Catheter Time of Insertion: 11:55 Date Urinary Catheter Removed: 05/06/23 Time Urinary Catheter Discontinued: 14:16 A&P Assessment and plan (1) Parotid mass: Impression: Night of surgery s/p left superficial parotidectomy doing well except as noted below Plan: - Overnight observation - MICHELLE to the left facial wound TID - Regular diet - Continue current medications - Closed suction drainage - Anticipate d/c in the am (2) Essential hypertension: Impression: Hypertension, possibly related to his not taking all of his BP meds this morning Plan: - The patient has now taken all of his meds - Observation overnight - F/U with PCP this week after d/c Attestations Medical Necessity Statement*: The patient requires overnight observation of his airway Coding Level of Care Code Acute Code for Chg Fwd Diagnoses Parotid mass K11.8 Essential hypertension I10
[2023-05-07] VITALS: BP 174/79; PULSE 70; RESP 16; TEMP 36.3; O2SAT 95
[2023-05-07] MEDS: clindamycin 600 MG/50 ML PREMIX 100 MG IV (03:05)
[2023-05-07] MEDS: famotidine 20 mg/2 mL INJ IVP (03:31)
[2023-05-07 04:00] VITALS: BP 173/79; PULSE 66; RESP 17; TEMP 36.4; O2SAT 95
[2023-05-07 05:18] VITALS: PULSE 63
--- NOTE | 2023-05-07 05:18 | P.PN_ITS ---
Subjective Subjective: 67 yo wm who is POD #1 s/p left superfic ial parotidectomy who is doing well. The patient reports minimal pain, and is taking po well. Medications: Reviewed: Yes Vitals/I&O/Wt Last Vital Signs Temp 97.6 F 05/07/23 04:00 Pulse 66 05/07/23 04:00 Resp 17 05/07/23 04:00 BP 173/79 05/07/23 04:00 Pulse Ox 95 05/07/23 04:00 O2 Del Method Room Air 05/06/23 19:36 O2 Flow Rate 8 05/06/23 14:35 05/06/23 05/06/23 05/07/23 14:59 22:59 06:59 Intake Total 1400 / 1400 550 / 1950 530 / 2480 Output Total 910 / 910 2 / 912 Balance 490 / 490 548 / 1038 530 / 1568 Weight last 48 hrs Weight 133.583 kg Weight 125.191 kg Weight 125.191 kg Physical Exam Const: COMMON NORMALS: no acute distress, patient oriented x3 and alert HENMT: COMMON NORMALS: normocephalic, atraumatic and Normal external nose present HEAD & SCALP: normocephalic and atraumatic FACE & SINUS: face symmetric NOSE: Normal external nose present Eye: COMMON NORMALS: conjunctivae normal and no scleral icterus CONJUNCTIVA: Yes conjunctivae normal Neck/C-Spine: COMMON NORMALS: full ROM and no lymphadenopathy CERVICAL SPINE: Yes other (Left facial wound intact without swelling.) Chest: COMMONS NORMALS: normal inspection of the chest Resp: COMMON NORMALS: normal respiratory effort, No retractions, No use of accessory muscles and clear to auscultation bilaterally AUSCULTATION: clear to auscultation bilaterally Cardio: COMMON NORMALS: regular rate, regular rhythm and No murmurs present (Cardio) RATE: regular rate RHYTHM: regular rhythm GI: COMMON NORMALS: Normal to inspection, nondistended, normoactive bowel sounds present Extremity: COMMON NORMALS: normal to inspection Neuro: COMMON NORMALS: patient oriented x3 and CN's II-XII intact bilaterally (Facial nerve function intact bilaterally.) SENSORIUM/ORIENTATION: Yes alert Urinary Catheter Management: Kinney: Cath Placed During This Visit: yes, but has since been removed by the nurse Urinary Catheter Date of Insertion: 05/06/23 Urinary Catheter Time of Insertion: 11:55 Date Urinary Catheter Removed: 05/06/23 Time Urinary Catheter Discontinued: 14:16 A&P Assessment and plan (1) Parotid mass: Impression: POD #1 s/p left superficial parotidectomy doing well Plan: - D/C to home - Closed suction drainage - Apply MICHELLE to the left facial wound TID - Resume all preop medications (Eliquis tomorrow) - F/U in Dr. Collins's office in 2 days - Notify Dr. Collins for any problems (2) Essential hypertension: Impression: Improved overnight Plan: The patient is to f/u with his PCP MIKE for management Attestations Medical Necessity Statement*: The patient required overnight observation of his airway and for post op pain management Coding Level of Care Code Acute Code for Chg Fwd Diagnoses Parotid mass K11.8 Essential hypertension I10
[2023-05-07 07:20] VITALS: BP 212/93; PULSE 80; RESP 15; TEMP 36.9; O2SAT 95
[2023-05-07 08:00] VITALS: PULSE 68; RESP 16; O2SAT 96
[2023-05-07] MEDS: ipratropium 0.5 mg/2.5 mL Neb INHALATION (08:04)
[2023-05-07] MEDS: amiodarone 200 mg Tablet PO (08:20)
[2023-05-07] MEDS: lisinopril 20 mg Tablet 40 MG PO (08:20)
[2023-05-07] MEDS: metoprolol succinate ER (24 HR) 50 mg Tablet PO (08:20)
[2023-05-07] MEDS: pantoprazole DR 40 mg Tablet PO (08:20)
[2023-05-07] MEDS: docusate sodium 100 mg Capsule PO (08:20)
[2023-05-07] MEDS: FUROsemide 20 mg Tablet PO (08:21)
[2023-05-07] MEDS: potassium chloride ER 10 mEq Tablet PO (08:21)
--- NOTE | 2023-05-07 08:26 | PC.NURSE ---
Discharge instructions provided to pt. No questions or concerns at this time. States that his ride home will not be here until 1000 today.
[2023-05-07 08:27] VITALS: PULSE 68; RESP 16; O2SAT 96
== END 2023-05-07 09:44 | disposition home or self-care (01) ==
LOC: MEDSURG 14:49
PROVIDERS: Admitting Provider Specialist; PCP Family Medicine; Visit Provider Specialist
PROC: (CPT 42410; principal; 2023-05-06 11:10)
DX: D11.0 Benign neoplasm of parotid gland (principal); I10 Essential (primary) hypertension; I48.91 Unspecified atrial fibrillation; J44.9 Chronic obstructive pulmonary disease, unspecified; K21.9 Gastro-esophageal reflux disease without esophagitis
CPT/HCPCS: 42415; 51702; 88307; 94640; G0378; J0131; J0360; J1100; J1170; J2250; J2405; J2704; J3010; J3490; J7030; J7120; J7644

== ENCOUNTER 2023-05-12 12:59 | Outpatient (CLI) | payer BC, SELFPAY ==
--- NOTE | 2023-05-12 14:00 | CT_ITS ---
WS: [id number] CT chest wo con [id number] HISTORY: lung nodule TECHNIQUE: Axial imaging performed through the thorax. Coronal and sagittal reformats are submitted. All CT scans at [facility] use at least one of these dose optimization techniques: automated exposure control; mA and/or kV adjustment per patient size (includes targeted exams where dose is mat ched to clinical indication); or iterative reconstruction. CONTRAST: None DLP: 786.91 mGy.cm COMPARISON: Prior chest CT 09/05/2022, PET/CT 10/05/2022 Lungs and central airway: Lungs are hyperexpanded. No appreciable change in the subsolid nodule super ior segment LEFT lower lobe measuring 1.9 x 1.5 cm. No new or solid mass. Emphysema. Pleura: Normal. No pleural effusion. Heart and pericardium: Normal size heart with no pericardial effusion. Mediastinum and turner: No mediastinum or hilar adenopathy. Vessels: Mild atherosclerosis aorta. Normal size pulmonary artery. Moderate coronary artery calcifica tions. Chest wall and lower neck: No soft tissue masses. Upper abdomen: Bilateral adrenal masses consistent with LEFT adenoma and RIGHT hyperplasia. Largest i ncompletely visualized on the LEFT measures 2.8 x 2.3 cm. Osseous structures: Increase in thoracic kyphosis. IMPRESSION: 1. Subsolid, PET/CT negative nodule in the superior segment LEFT lower lobe is unchanged since 023. 2. No mediastinal or hilar adenopathy. 3. No residual pleural effusion or atelectasis at the RIGHT lung base since the PET/CT of 10/05/2022. 4. No new pulmonary mass. 5. Atherosclerosis aorta. 6. Stable LEFT adrenal adenoma and hyperplasia of the RIGHT adrenal gland.
== END 2023-05-12 13:00 | disposition home or self-care (01) ==
LOC: RAD 13:00
PROVIDERS: PCP Family Medicine; Visit Provider Internal Medicine Pulmonary Disease
DX: R91.1 Solitary pulmonary nodule (principal)
CPT/HCPCS: 71250

== ENCOUNTER 2023-05-29 13:03 | Outpatient (CLI) | payer BC, SELFPAY ==
[2023-05-29 13:48] LABS: Anion Gap 16.5 (5-19); Blood Urea Nitrogen 20 mg/dL (8-23); Calcium 9.5 mg/dL (8.5-10.5); Carbon Dioxide 23 mmol/L (22-29); Chloride 108 mmol/L (98-107); Glomerular Filtration Rate 67.2 mL/min (90-130); Glucose 113 mg/dL (65-115); Osmolality Calculated 299 mOsm/kg (285-295); Potassium 4.5 mmol/L (3.5-5.1); Sodium 143 mmol/L (136-145)
== END 2023-05-29 13:04 | disposition home or self-care (01) ==
LOC: LAB 13:06
PROVIDERS: PCP Family Medicine; Visit Provider Nurse Practitioner
DX: I48.0 Paroxysmal atrial fibrillation (principal)
CPT/HCPCS: 36415; 80048

== ENCOUNTER 2023-06-04 12:39 | Outpatient (CLI) | payer BC, SELFPAY ==
--- NOTE | 2023-06-04 13:00 | US_ITS ---
WS: [id number] RENAL ULTRASOUND HISTORY: Refractory hypertension, uncontrolled. COMPARISON: None available. Quality this examination is compromised by body habitus. TECHNIQUE: 2-D and color Doppler imaging of the kidney submitted. Right kidney: 11.5 cm x 6.6 cm x 4.2 cm. Cortex: 1.7 cm Normal echogenicity with no hydronephrosis or mass. Left kidney: 11.8 cm x 4.1 cm x 5.0 cm. Cortex: 1.6 cm Hypoechoic mass from the medial LEFT kidney measures 1.7 x 1.6 x 1.6 cm. There are low-level echoes p resent. This is difficult to evaluate completely due to body habitus. This may be a cyst or complex c yst. Neoplasm is not excluded. No hydronephrosis. Aorta: Normal. Urinary Bladder: Normal distention. IMPRESSION: 1. No hydronephrosis. 2. Indeterminant hypoechoic mass medial LEFT kidney measures 1.7 x 1.6 x 1.6 cm. Cyst versus complex cyst or early neoplasm. Recommend follow-up ultrasound 3 to 4 months.
== END 2023-06-04 12:40 | disposition home or self-care (01) ==
LOC: RAD 12:39
PROVIDERS: PCP Family Medicine; Visit Provider Family Medicine
DX: I10 Essential (primary) hypertension (principal); N32.89 Other specified disorders of bladder
CPT/HCPCS: 76770

== ENCOUNTER 2023-06-11 12:53 | Outpatient (CLI) | payer BC, SELFPAY | END 2023-06-11 12:54 | disposition home or self-care (01) | LOC: RT 12:54 | PROVIDERS: PCP Family Medicine; Visit Provider Internal Medicine Pulmonary Disease | DX: R91.1 Solitary pulmonary nodule (principal) | CPT/HCPCS: 94010; 94726; 94729 ==

== ENCOUNTER 2023-06-30 13:26 | Outpatient (CLI) | payer BC, SELFPAY ==
--- NOTE | 2023-06-30 14:00 | CTR_ITS ---
PROCEDURE INFORMATION: Exam: CTA Abdominal Aorta and Bilateral Lower Extremities (Run-off) With Contrast Exam date and time: 06/30/2023 2:12 PM Age: 67 years old Clinical indication: Abnormal findings; Abnormal diagnostic imaging exam; Abnormality: Renal stenosis; Exam and body structure: US renal; Patient HX: Follow up renal artery stenosis and chronic le dvt, pvd; Additional info: Renal artery stenosis, chronic le dvt. , Concern for renal artery stenosis. TECHNIQUE: Imaging protocol: Computed tomographic angiography of the of the abdominal aorta, pelvis and bilateral lower extremities with contrast. 3D rendering (Not supervised by radiologist): MIP and/or 3D reconstructed images were created by the technologist. Radiation optimization: All CT scans at this facility use at least one of these dose optimization techniques: automated exposure control; mA and/or kV adjustment per patient size (includes targeted exams where dose is matched to clinical indication); or iterative reconstruction. Contrast material: OMNIPAQUE 350; Contrast volume: 125 ml; Contrast route: INTRAVENOUS (IV); COMPARISON: US renal BI* [id number] 06/04/2023 12:46 PM RADIATION DOSE METRICS: Total DLP (mGy-cm): 1922.26 FINDINGS: Aorta: No aortic aneurysm. No aortic dissection. Heavy calcified plaque. Celiac trunk and mesenteric arteries: No occlusion or significant stenosis. Renal arteries: Calcified plaque causes a 30% stenosis in both renal arteries proximally. Right iliac arteries: No occlusion or significant stenosis. Heavy calcified plaque. Right femoral/popliteal arteries: 50% stenosis involving the ostium of the right SFA. Calcified plaque causes a 50% stenosis of the distal SFA. Right infrapopliteal arteries: No occlusion or significant stenosis. Left iliac arteries: No occlusion or significant stenosis. Heavy calcified plaque. Left femoral/popliteal arteries: 50% stenosis involving the ostium of the left SFA. Focal 50% stenosis involving the left SFA at the upper thigh level. Focal 70% stenosis involving the left SFA at the distal thigh level. Left infrapopliteal arteries: No occlusion or significant stenosis. Liver: No mass. Gallbladder and bile ducts: Unremarkable. No calcified stones. No ductal dilation. Pancreas: Unremarkable. No mass. No ductal dilation. Spleen: Normal. No splenomegaly. Adrenal glands: 4.2 cm low-density mass involves the left adrenal gland. Kidneys and ureters: Normal. No mass. Stomach and bowel: Unremarkable. No obstruction. No mucosal thickening. Appendix: No evidence of appendicitis. Urinary bladder: Unremarkable. No mass. Reproductive: Unremarkable as visualized. Intraperitoneal space: Unremarkable. No free air. No significant fluid collection. Lymph nodes: No lymphadenopathy. Bones/joints: No acute fracture. No dislocation. Soft tissues: Unremarkable. CT/CT angio abd aorta runof [id number] IMPRESSION: 1. 30% bilateral renal artery stenosis 2. Multifocal stenoses involving both SFA 3. Stable left adrenal adenoma
[2023-06-30] MEDS: iohexol 350 mg/mL 500 mL Btl (per mL) IV (14:27)
== END 2023-06-30 13:27 | disposition home or self-care (01) ==
LOC: RAD 13:27
PROVIDERS: PCP Family Medicine; Visit Provider Family Medicine
DX: I10 Essential (primary) hypertension (principal); I70.1 Atherosclerosis of renal artery; I82.723 Chronic embolism and thrombosis of deep veins of upper extremity, bilateral; I70.203 Unspecified atherosclerosis of native arteries of extremities, bilateral legs; D35.00 Benign neoplasm of unspecified adrenal gland
CPT/HCPCS: 75635; Q9967

== ENCOUNTER 2024-01-07 15:17 | Outpatient (CLI) | payer BC, SELFPAY ==
[2024-01-07 16:26] LABS: Hematocrit 30.1 % (37-53); Mean Corpuscular HGB Conc 30.6 g/dL (30-55); Mean Corpuscular Hemoglobin 30.4 pg (27-33); Mean Corpuscular Volume 99.3 fl (82-101); Mean Platelet Volume 10.2 fL (7.4-10.4); Platelet Count 296 10^3/cmm (157-399); Red Blood Count 3.03 10^6/uL (3.85-5.65); Red Cell Distribution Width 13.2 % (12.1-15.1); White Blood Count 8.63 10^3/uL (3.29-11.43)
[2024-01-07 16:59] LABS: Alanine Aminotransferase 25 U/L (0-41); Albumin Level 3.7 g/dL (3.5-5.2); Alkaline Phosphatase 101 U/L (40-130); Anion Gap 13.6 (5-19); Aspartate Amino Transferase 20 U/L (0-40); Blood Urea Nitrogen 12 mg/dL (8-23); Calcium 8.7 mg/dL (8.5-10.5); Carbon Dioxide 25 mmol/L (22-29); Chloride 107 mmol/L (98-107); Globulin 2.6 g/dL (1.3-4.6); Glomerular Filtration Rate 50.7 mL/min (90-130); Glucose 94 mg/dL (65-115); Iron 48 ug/dL (59-158); Osmolality Calculated 294 mOsm/kg (285-295); Potassium 3.6 mmol/L (3.5-5.1); Sodium 142 mmol/L (136-145); Total Bilirubin 0.3 mg/dL (0.15-1.2); Total Iron Binding Capacity 281 mcg/dl; Total Protein 6.3 g/dL (6.6-8.7); Unsaturated Iron Binding 233 ug/dL (112-347)
== END 2024-01-07 15:18 | disposition home or self-care (01) ==
PROVIDERS: PCP Family Medicine; Visit Provider Surgery Vascular Surgery
DX: I73.9 Peripheral vascular disease, unspecified (principal)
CPT/HCPCS: 80053; 83540; 83550; 85027

== ENCOUNTER 2024-01-23 14:28 | Outpatient (CLI) | payer BC, SELFPAY ==
--- NOTE | 2024-01-23 14:33 | USCV_ITS ---
Michael Joyner Age: 68 Gender: M : 1955 Exam Date: 01/23/2024 14:43 Ordering Phys: Mark Toro D.O. Technologist: Exam Location: [facility] [place] Indication: fem to fem Risk Factors: Previous Vascular Surgery: RIGHT LEFT BP: 130.0 / 80.00 BP: 130.0/ 80.00 0 0 Waveform Velocity (cm/s) Velocity (cm/s) Waveform Monophasic 127.0 Iliac Prox 104.0 Biphasic Monophasic 120.0 Iliac Mid 98.0 Biphasic Monophasic 115.0 Iliac Distal 95.0 Biphasic Monophasic 140.0 WINDER HAND 68.0 Biphasic Biphasic 120.0 SFA Prox 92.0 Biphasic Biphasic 120.0 SFA Mid 100.0 Biphasic Monophasic SFA Dist Biphasic 69.0 100.0 Monophasic 64.0 POP 65.0 Monophasic Monophasic 38.0 BOTTLE WASHER 37.0 Monophasic Monophasic 46.0 DPA 51.0 Biphasic 0.8 LAZARO 0.8 FINDINGS 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 Abnormal resting LAZARO of 0.80 bilaterally, suggesting mild peripheral artery disease 2. Mild to moderate diffuse plaque in the iliac, femoral and popliteal arteries bilaterally 3. No similar previous studies are available for comparison Dr Mercedes Estevez MD [facility] (Electronically Signed) Final Date: 27 January 2024 20:05 S
== END 2024-01-23 14:29 | disposition home or self-care (01) ==
LOC: RAD 14:29
PROVIDERS: PCP Family Medicine; Visit Provider Surgery Vascular Surgery
DX: I70.213 Atherosclerosis of native arteries of extremities with intermittent claudication, bilateral legs (principal)
CPT/HCPCS: 93925

== ENCOUNTER 2024-02-18 13:02 | Outpatient (CLI) | payer BC, SELFPAY ==
--- NOTE | 2024-02-18 13:07 | CT_ITS ---
WS: [id number] LDCT LUNG CANCER SCREENING TECHNIQUE: Noncontrast CT of the chest with coronal and sagittal reformatted images. CLINICAL INFORMATION: Lung cancer screening COMPARISON: CT 05/12/2023 and 09/05/2022. PET/CT 10/05/2022 DLP: 131.20 mGy.cm DIvol: Mean CTDIvol: 3.40 (mGy) All CT scans at [facility] use at least one of these dose optimization techniques: automat ed exposure control; mA and/or kV adjustment per patient size (includes targeted exams where dose is matched to clinical indication); or iterative reconstruction. FINDINGS: Stable semisolid 2.1 cm nodule in the superior segment LEFT lower lobe was previously PET CT negative . This is unchanged. No new solid or hilar lymphadenopathy. Aortic calcification. Chronic emphysemato us changes. New slightly irregular nodule in the LEFT lower lobe laterally measuring 7-8 mm. This is new since 01/2024. Recommend further evaluation with PET/CT. Nodule demonstrates slightly irregular margins. Aortic and coronary calcification. Stable LEFT adrenal adenoma with thickening of the RIGHT adrenal g land. Thoracic kyphosis. Splenic artery calcification. Splenic granulomas. CT/CT lung screening [id number] IMPRESSION: LUNG-RADS: 4A-Probably Suspicious FOLLOW UP: PET/CT recommended If PET/CT cannot be performed a follow-up chest CT with contrast in 3 months is recommended.
== END 2024-02-18 13:03 | disposition home or self-care (01) ==
LOC: RAD 13:03
PROVIDERS: PCP Family Medicine; Visit Provider Family Medicine
DX: Z12.2 Encounter for screening for malignant neoplasm of respiratory organs (principal); F17.200 Nicotine dependence, unspecified, uncomplicated; I25.84 Coronary atherosclerosis due to calcified coronary lesion; J43.9 Emphysema, unspecified; R91.8 Other nonspecific abnormal finding of lung field; D35.02 Benign neoplasm of left adrenal gland; M40.204 Unspecified kyphosis, thoracic region; D73.89 Other diseases of spleen
CPT/HCPCS: 71271

== ENCOUNTER 2024-03-05 11:30 | Outpatient (CLI) | payer BC, SELFPAY ==
--- NOTE | 2024-03-05 11:30 | PETR_ITS ---
PROCEDURE INFORMATION: Exam: PET/CT Skull Base to Mid-thigh Exam date and time: 03/05/2024 12:27 PM Age: 68 years old Clinical indication: Abnormal findings; New slightly irregular nodule in the left lower lobe; Additional info: Abnormal lung CT. , New slightly irregular nodule in the left lower lobe LABS AND CLINICAL REPORTS: Glucose: 149 mg/dl Treatment strategy for malignancy (PET staging): Initial Staging (PI) TECHNIQUE: Imaging protocol: Following at least four-hour fasting and following the injection of radiopharmaceutical, low dose CT images were obtained. Then, PET images were obtained. Attenuation corrected images were constructed using the CT scan. Fused images of PET and CT were reviewed. The standardized uptake values (SUV) reported below are maximum values within a region of interest, expressed in gm/ml. Exam includes orbital meatal line to mid-thigh. SUV normalization method: BodyWeight Radiopharmaceutical: 11.14 mCi F-18 FDG (Fluorodeoxyglucose), IV. Time of imaging post radiopharmaceutical administration: 46 minutes Injection site: left hand COMPARISON: 1. PT PET skull to thigh SUBS [id number] 10/05/2022 10:[address] lung screening [id number] 02/18/2024 1:[address] angio abd aorta runof [id number] 06/30/2023 2:12 PM FINDINGS: Brain: Visualized brain has normal physiologic uptake. Salivary glands: At the posterior right parotid margin is a soft tissue density nodule measuring approximately 10 x 5 mm on axial image 635 showing SUV max 3.8. Previous left parotid FDG avid lesions have resolved. Pharynx: No abnormal uptake. Larynx: No abnormal uptake. Lungs, pleura and trachea: 8 mm left lower lobe nodule on axial image 487 shows SUV max 7.8. Stable size 2.3 cm subsolid left lower lobe superior segment opacity with SUV max 2.8, previously 1.4. Left lower lobe calcified granuloma. Heart: Normal physiologic uptake. Coronary arteries: Heavy coronary artery calcification. Mediastinal space: No abnormal uptake. Liver: No abnormal uptake. Gallbladder and biliary ducts: No abnormal uptake. Pancreas: No abnormal uptake. Spleen: No abnormal uptake. Calcified granulomata. Adrenal glands: No abnormal uptake. Stable 3.4 cm left adrenal adenoma and right adrenal thickening. Kidneys and ureters: Normal physiologic uptake. Photopenic fluid density left renal cyst. Stomach and bowel: No abnormal uptake. Colonic diverticulosis without findings of diverticulitis. Vasculature: No abnormal uptake. Heavy systemic atherosclerotic calcification without aortic aneurysm. Suspect recent fem-fem bypass with bilateral inguinal postsurgical stranding and surgical clips as well as associated low-level FDG uptake new from June 2023. Lymph nodes: No abnormal uptake. No lymphadenopathy in the head, neck, chest, abdomen, pelvis, and extremities. Calcified left hilar nodes in keeping with sequela of old granulomatous disease. Skeleton: Degenerative changes along the spine, acromioclavicular and sacroiliac joints. Soft tissues: Bilateral inguinal post procedural stranding and clips with low-level FDG uptake. Small fat containing left inguinal hernia. METRICS: Mediastinal blood pool: SUV mean 2.5 Liver uptake: SUV mean 2.7 PET/PET skull to thigh INIT [id number] IMPRESSION: 1. FDG avid 8 mm left lower lobe nodule suspicious for malignancy. 2. Stable size 2.3 cm subsolid left lower lobe superior segment opacity with mildly increased low-level FDG uptake, which may be inflammatory, indolent neoplasm not excluded. 3. Mildly metabolic 1 cm nodule at the posterior right parotid margin may represent primary neoplasm or abnormal lymph node. Resolved left parotid FDG avid nodules. 4. Fem-fem bypass changes appear recent. 5. Additional chronic and incidental findings as above.
== END 2024-03-05 11:32 | disposition home or self-care (01) ==
PROVIDERS: PCP Family Medicine; Visit Provider Family Medicine
DX: R91.1 Solitary pulmonary nodule (principal); R91.8 Other nonspecific abnormal finding of lung field; D11.0 Benign neoplasm of parotid gland; D73.89 Other diseases of spleen; D35.02 Benign neoplasm of left adrenal gland; K57.90 Diverticulosis of intestine, part unspecified, without perforation or abscess without bleeding; Z95.820 Peripheral vascular angioplasty status with implants and grafts
CPT/HCPCS: 78815; A9552

== ENCOUNTER 2024-03-10 13:19 | Outpatient (CLI) | payer BC, SELFPAY ==
[2024-03-10 13:32] LABS: Basophils # 0.1 10^3/uL (0.0-0.1); Basophils % 0.8 %; Eosinophils # 0.3 10^3/uL (0.0-0.8); Eosinophils % 2.9 %; Hematocrit 43.3 % (37-53); Lymphocytes # 1.9 10^3/uL (0.8-4.8); Mean Corpuscular HGB Conc 30.9 g/dL (30-55); Mean Corpuscular Volume 97.1 fl (82-101); Mean Platelet Volume 9.5 fL (7.4-10.4); Monocytes # 0.7 10^3/uL (0.2-0.9); Neutrophils # 6.02 10^3/uL (1.8-7.7); Neutrophils % 67.1 %; Nucleated Red Blood Cells % 0 %; Platelet Count 251 10^3/cmm (157-399); Red Blood Count 4.46 10^6/uL (3.85-5.65); White Blood Count 8.97 10^3/uL (3.29-11.43)
[2024-03-10 14:02] LABS: Alanine Aminotransferase 21 U/L (0-41); Albumin Level 4.1 g/dL (3.5-5.2); Alkaline Phosphatase 87 U/L (40-130); Anion Gap 17.2 (5-19); Aspartate Amino Transferase 21 U/L (0-40); Blood Urea Nitrogen 18 mg/dL (8-23); Calcium 9.4 mg/dL (8.5-10.5); Carbon Dioxide 24 mmol/L (22-29); Chloride 102 mmol/L (98-107); Free T4 Free Thyroxine 1.56 ng/dL (0.82-1.77); Globulin 2.9 g/dL (1.3-4.6); Glomerular Filtration Rate 55.2 mL/min (90-130); Glucose 117 mg/dL (65-115); Osmolality Calculated 291 mOsm/kg (285-295); Potassium 4.2 mmol/L (3.5-5.1); Prostate Specific Antigen Scr 0.44 ng/mL (0-4); Sodium 139 mmol/L (136-145); Thyroid Stimulating Hormone 0.87 uIU/mL (0.27-4.20); Total Bilirubin 0.2 mg/dL (0.15-1.2)
[2024-03-10 14:21] LABS: Estmated Average Glucose 100; Hemoglobin A1C 5.1 % (4.0-6.0)
== END 2024-03-10 13:20 | disposition home or self-care (01) ==
LOC: LAB 13:21
PROVIDERS: PCP Family Medicine; Visit Provider Family Medicine
DX: I10 Essential (primary) hypertension (principal); I48.20 Chronic atrial fibrillation, unspecified; R06.09 Other forms of dyspnea; N40.0 Benign prostatic hyperplasia without lower urinary tract symptoms; R91.1 Solitary pulmonary nodule; Z12.5 Encounter for screening for malignant neoplasm of prostate
CPT/HCPCS: 36415; 80053; 83036; 84439; 84443; 85025; G0103

== ENCOUNTER 2024-06-01 16:28 | Emergency (ER) | payer BC, SELFPAY ==
[2024-06-01] VITALS (14 sets, daily range): BP systolic 67–109; BP diastolic 47–60; PULSE 65–99; RESP 16–20; O2SAT 93–99; BMI 32.7
--- NOTE | 2024-06-01 16:42 | ECG_ITS ---
[facility] 2024-[facility]01 Pat Name: Michael Joyner Department: Room: Gender: Male Online Content Developer: : 1955 Requested By: Dannie Wood Order Number: [id number] Reading MD: Measurements Intervals [place] Rate: 90 P: 47 FL: 153 QRS: 47 QRSD: 79 T: 43 QT: 377 QTc: 463 Interpretive Statements SINUS RHYTHM No previous ECG available for comparison [email or web address] [email or web address]
--- NOTE | 2024-06-01 16:49 | CTR_ITS ---
PROCEDURE INFORMATION: Exam: CTA Chest With Contrast Exam date and time: 06/01/2024 6:12 PM Age: 68 years old Clinical indication: Abdominal pain; Generalized; On breathing; Additional info: Dyspnea productive cough lung nodule anorexia unexplained we TECHNIQUE: Imaging protocol: Computed tomographic angiography of the chest with contrast. Exam focused on the arteries. 3D rendering (Not supervised by radiologist): MIP and/or 3D reconstructed images were created by the technologist. Radiation optimization: All CT scans at this facility use at least one of these dose optimization techniques: automated exposure control; mA and/or kV adjustment per patient size (includes targeted exams where dose is matched to clinical indication); or iterative reconstruction. Contrast material: OMNIPAQUE 350; Contrast volume: 100 ml; Contrast route: INTRAVENOUS (IV); COMPARISON: PT PET skull to thigh INIT [id number] 03/05/2024 12:27 PM; chest CT 02/18/2024 RADIATION DOSE METRICS: Total DLP (mGy-cm): 1722.57 FINDINGS: Pulmonary arteries: Normal. No pulmonary emboli. Aorta: Unremarkable. No aortic aneurysm. No aortic dissection. Lungs: 0.8 cm left superior segment nodule without appreciable change. Focal cluster cysts or cystic bronchiectasis in the left superior segment without change. There is a new 1.2 cm right apical pulmonary nodule. Extensive consolidation in the right lower lobe with cavitation is new. Adjacent ground-glass opacity in the superior segment is also new. The consolidation demonstrates multiple areas of cavitation, with the largest measuring approximately 3.3 x 3.6 cm. There are multiple small cystic lesions in the right upper lobe which appear to be new. These are less than 1 cm. Pleural spaces: Unremarkable. No pneumothorax. No pleural effusion. Heart: Unremarkable. No cardiomegaly. No pericardial effusion. Lymph nodes: New right paratracheal adenopathy measures 1.1 cm in short axis. New right hilar adenopathy measures 1.8 cm in short axis. Bones/joints: Unremarkable. No acute fracture. Soft tissues: Unremarkable. PROCEDURE INFORMATION: Exam: CT Abdomen And Pelvis With Contrast Exam date and time: 06/01/2024 6:12 PM Age: 68 years old Clinical indication: Abdominal pain; Generalized; On breathing; Additional info: Dyspnea productive cough lung nodule anorexia unexplained we TECHNIQUE: Imaging protocol: Computed tomography of the abdomen and pelvis with contrast. Radiation optimization: All CT scans at this facility use at least one of these dose optimization techniques: automated exposure control; mA and/or kV adjustment per patient size (includes targeted exams where dose is matched to clinical indication); or iterative reconstruction. Contrast material: OMNIPAQUE 350; Contrast volume: 100 ml; Contrast route: INTRAVENOUS (IV); COMPARISON: PT PET skull to thigh INIT [id number] 03/05/2024 12:27 PM RADIATION DOSE METRICS: Total DLP (mGy-cm): 1722.57 FINDINGS: Liver: Normal. No mass. Gallbladder and biliary ducts: There may be subtle wall thickening of the gallbladder. The appearance is not clearly changed compared to the prior study. The gallbladder is not enlarged and is in fact somewhat diminutive. Pancreas: Normal. No ductal dilation. Spleen: Normal. No splenomegaly. Adrenal glands: Bilateral adrenal thickening and nodularity without appreciable change. Kidneys and ureters: Small left renal cyst off the upper pole. Stomach and bowel: Colonic diverticulosis without evidence of diverticulitis. No evidence of bowel obstruction or abnormal wall thickening. Appendix: No evidence of appendicitis. Intraperitoneal space: Unremarkable. No free air. No significant fluid collection. Vasculature: Fem-fem bypass graft is noted. Lymph nodes: Unremarkable. No enlarged lymph nodes. Urinary bladder: There is diffuse bladder wall thickening. Reproductive: Unremarkable as visualized. Bones/joints: Unremarkable. No acute fracture. Soft tissues: Unremarkable. CT/CT angio chest w abd pel w con IMPRESSION: 1. Extensive right lower lobe consolidation with multiple areas of cavitation. This may represent necrotizing pneumonia. 2. New right paratracheal and right hilar adenopathy which may be reactive secondary to the extensive right lower lobe pneumonia but neoplastic etiologies can not be excluded. 3. New right apical pulmonary nodule measuring 1.2 cm. This is worrisome for metastatic disease. 4. Multiple cysts or cystic lesions in the right upper lobe which are new. Cavitary metastases and infection are in the differential. 5. Stable 0.8 cm left lower lobe nodule in the superior segment which was FDG avid. IMPRESSION: 1. Stable bilateral adrenal enlargement and nodularity. 2. Possible subtle wall thickening of the gallbladder without enlargement. 3. Diffuse bladder wall thickening. COMMENTS: Consistent with the [employer]'s Incidental Findings Committee white paper (J Am Jorge Alberto Radiol 2018): Any incidental renal lesion less than 1 cm or classified as too small to characterize, or any incidental cystic renal lesion characterized as simple-appearing, is likely benign. No follow-up imaging is recommended for these lesions per consensus recommendations based on imaging criteria.
--- NOTE | 2024-06-01 16:50 | XRR_ITS ---
PROCEDURE INFORMATION: Exam: XR Chest Exam date and time: 06/01/2024 4:52 PM Age: 68 years old Clinical indication: Cough and dyspnea; Additional info: Dyspnea/cough TECHNIQUE: Imaging protocol: Radiologic exam of the chest. Views: 1 view. COMPARISON: CT lung screening [id number] 02/18/2024 1:10 PM FINDINGS: Lungs: Focal opacity or consolidation is seen at the right lung base consistent with pneumonia. This is new compared to prior study. Calcified pulmonary nodule at the left lung base. Pleural spaces: Unremarkable. No pleural effusion. No pneumothorax. Heart/Mediastinum: Unremarkable. No cardiomegaly. Bones/joints: Unremarkable. XR/XR chest 1V portable [id number] IMPRESSION: Right basilar consolidation or pneumonia.
--- NOTE | 2024-06-01 16:52 | W.ED.SOB ---
Documented by User: Dannie Cooperrichiezane, 06/03/24 06:13 HPI - SOB/Dyspnea General: Chief Complaint: Shortness of Breath/Dyspnea Stated Complaint: SOB Time Seen by Provider: 06/01/24 16:41 History of Present Illness: HPI Narrative: Six 8-year-old male presents to the emergency room significantly short of breath however he is maintaining his sats he is tachypneic. 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 His significant other was relatively recently hospitalized for RSV pneumonitis which she weathered well. Shortly after this he began to get sick and is progressively worsened. He has no history of coronary artery disease no hemoptysis. Mild mucus productive swab. Patient is a smoker. He has a history of COPD and CHF. He has not noticed any rapid heart rates. He does have some chest pain but he localizes it to the right lower portion of his chest with coughing not at other times there is no radiation of the pain to the neck back or arms. He has not been known to have a coronary artery disease in the past. Patient is a heavy smoker drinks alcohol regularly as well. He has a known history of peripheral artery disease with a an emergent femoropopliteal bypass for ischemic limb within the last year. 68-year-old man who presents emergency room with weakness and shortness of breath. His care was transitioned to ne at shift change awaiting CT scan results. He was hypotensive on presentation. Afebrile. He has a history of COPD and CHF. He is having inspiratory pain on the right. thought he might be a little bit confused. Associated symptoms: Deny abdominal pain, chest pain or fever(s) Related Data Home Medications ?Medication ?Instructions ?Recorded ?Confirmed spironolactone 25 mg tablet 25 mg PO DAILY 07/31/23 03/16/24 (Aldactone) aspirin 81 mg tablet,delayed 81 mg PO DAILY 03/16/24 03/16/24 release (Adult Aspirin Regimen) Previous Rx's ?Medication ?Instructions ?Recorded amlodipine 5 mg tablet 10 mg (2 x 5 mg) PO DAILY #90 tabs 03/16/24 clopidogrel 75 mg tablet (Plavix) 75 mg PO DAILY #90 tabs 03/16/24 furosemide 20 mg tablet 20 mg PO DAILY #90 tabs 03/16/24 lisinopril 40 mg tablet 40 mg PO DAILY #90 tabs 03/16/24 metoprolol succinate 25 mg 25 mg PO DAILY #90 tabs 03/16/24 tablet,extended release 24 hr metoprolol succinate 50 mg 50 mg PO DAILY #90 tabs 03/16/24 tablet,extended release 24 hr pantoprazole 40 mg tablet,delayed 40 mg PO DAILY #90 tabs 03/16/24 release (Protonix) potassium chloride 8 mEq 8 meq PO DAILY #90 tabs 03/16/24 tablet,extended release tamsulosin 0.4 mg capsule 0.4 mg PO DAILY #90 caps 03/16/24 tiotropium bromide 18 mcg capsule 1 cap inhalation DAILY 30 days #60 03/16/24 with inhalation device (Spiriva inhalations with HandiHaler) Allergies Allergy/AdvReac Type Severity Reaction Status Date / Time Penicillins Allergy ALGY-Anaphy Verified 03/16/24 13:11 laxis Review of Systems Const: Reports: change in appetite, change in weight, fatigue and malaise; Denies: fever(s) or chills Card: Denies: chest pain Resp: Reports: dyspnea, productive cough and wheezing GI: Denies: abdominal pain : Denies: dysuria, urinary frequency or urinary urgency Musc: Denies: neck pain or back pain Skin/Breast: Denies: rash PFSH ED PFSH: Medical History (Updated 06/01/24 @ 20:16 by Shannon Mullen MD) Alcohol abuse Lung nodule PVD (peripheral vascular disease) with claudication Atrial fibrillation Renal artery stenosis Essential hypertension History of colon polyps GERD (gastroesophageal reflux disease) Family History Mother Cancer Breast CAD (coronary artery disease) Father Hypertension Cancer Colon and Thyroid Social History Smoking and tobacco/nicotine status: never used tobacco/nicotine Second hand smoke exposure: No Alcohol intake: current Alcohol intake frequency: holidays/special occasions only Substance/Drug Use: never Adopted: No Caregiver/support person: No Lives independently: Yes Physical Exam Const: GENERAL APPEARANCE: cooperative ORIENTATION/CONSCIOUSNESS: Yes awake, Yes oriented to person, Yes oriented to place and Yes oriented to time HENMT: COMMON NORMALS: normocephalic, atraumatic and hearing grossly normal bilaterally HEAD & SCALP: normocephalic and atraumatic Resp: EFFORT & INSPECTION: Yes tachypneic AUSCULTATION: rhonchi right lower and wheezes Cardio: COMMON NORMALS: regular rate, regular rhythm and No murmurs present (Cardio) RATE: regular rate RHYTHM: regular rhythm GI: COMMON NORMALS: Soft to palpation and No hepatosplenomegaly present AUSCULTATION: Yes normoactive bowel sounds PALPATION: Yes Soft to palpation, No Tenderness to palpation present (GI), No Guarding due to palpation present (GI) and Yes No hepatosplenomegaly present Extremity: COMMON NORMALS: normal to inspection, capillary refill normal, no clubbing, cyanosis or edema, no calf tenderness and no pedal edema Neuro: SENSORIUM/ORIENTATION: Yes oriented to person, Yes oriented to place and Yes oriented to time Skin: COMMON NORMALS: no rashes or lesions noted GENERAL SKIN EXAM: no rashes or lesions noted Course Vital Signs: Vital signs: Vital Signs Pulse Rate 65 06/01/24 23:00 Respiratory Rate 20 H 06/01/24 22:30 Blood Pressure 96/53 06/01/24 23:00 Pulse Oximetry 98 06/01/24 23:00 Oxygen Delivery Me thod Room Air 06/01/24 16:33 MDM - SOB/Dyspnea Medical Decision Making Patient maintaining his sats well but he is mildly tachypneic. He has significant hypotension with pressures into the 60s and 70s systolic he was given a sepsis fluid bolus while awaiting labs. Initial labs show white count of 22,000 with a large left shift is lactic acid is actually in the normal range although clinically I feel he is septic. He was started on IV antibiotics. Chest x-ray showed significant right lower lobe consolidation. CTA is waiting for over read by radiologist she appears to have a necrotizing pneumonia with some cavitary lesions at the right base. Initially he has responded to a fluid bolus and his pressure has improved over 100 systolic. We are waiting on his other laboratory work and CT over read. Anticipate patient will likely need to be transferred to a higher level of care. Initial antibiotics given based on chest x-ray and lab work for ceftriaxone and Zithromax. Care signed out to Dr. Mullen at change of shift. See final notes for diagnosis and disposition. Patient care transitioned me at shift change. Awaiting CT scan results. He has been being treated for sepsis. He has received 30 mL/kg bolus. He was hypotensive initially but blood pressure is now improved and stabilized at over [address] scan showed a consolidation with multiple areas of cavitation that may represent a necrotizing or pneumonia. At this point I broadened his antibiotics and gave him Zyvox and meropenem. Given empyema/necrotizing pneumonia patient needs to be transferred to a tertiary care center where there is pulmonary and critical care available. Patient accepted to [facility] in [place]. Dr. Mcneil excepting. Lab Data 06/01/24 16:58 06/01/24 16:58 Labs/Radiology: Radiology Impressions Chest/Abdomen/Pelvis CT 06/01/24 16:49 IMPRESSION: 1. Extensive right lower lobe consolidation with multiple areas of cavitation. This may represent necrotizing pneumonia. 2. New right paratracheal and right hilar adenopathy which may be reactive secondary to the extensive right lower lobe pneumonia but neoplastic etiologies can not be excluded. 3. New right apical pulmonary nodule measuring 1.2 cm. This is worrisome for metastatic disease. 4. Multiple cysts or cystic lesions in the right upper lobe which are new. Cavitary metastases and infection are in the differential. 5. Stable 0.8 cm left lower lobe nodule in the superior segment which was FDG avid. IMPRESSION: 1. Stable bilateral adrenal enlargement and nodularity. 2. Possible subtle wall thickening of the gallbladder without enlargement. 3. Diffuse bladder wall thickening. COMMENTS: Consistent with the [place] [employer]'s Incidental Findings Committee white paper (J Am Jorge Alberto Radiol 2018): Any incidental renal lesion less than 1 cm or classified as too small to characterize, or any incidental cystic renal lesion characterized as simple-appearing, is likely benign. No follow-up imaging is recommended for these lesions per consensus recommendations based on imaging criteria. Chest X-Ray 06/01/24 16:50 IMPRESSION: Right basilar consolidation or pneumonia. Laboratory Results WBC 22.22 10^3/uL (3.29-11.43) H 06/01/24 16:58 RBC 3.46 10^6/uL (3.85-5.65) L 06/01/24 16:58 Hgb 10.50 g/dL (11.27-16.99) L 06/01/24 16:58 Hct 32.7 % (37-53) L 06/01/24 16:58 MCV 94.5 fl (82-101) 06/01/24 16:58 MCH 30.3 pg (27-33) 06/01/24 16:58 MCHC 32.1 g/dL (30-55) 06/01/24 16:58 RDW 12.8 % (12.1-15.1) 06/01/24 16:58 Plt Count 494 10^3/cmm (157-399) H 06/01/24 16:58 MPV 9.6 fL (7.4-10.4) 06/01/24 16:58 Neut % (Auto) 88.0 % 06/01/24 16:58 Lymph % (Auto) 5.4 % 06/01/24 16:58 [place] % (Auto) 5.2 % 06/01/24 16:58 Eos % (Auto) 0.1 % 06/01/24 16:58 Baso % (Auto) 0.2 % 06/01/24 16:58 Neut # (Auto) 19.55 10^3/uL (1.8-7.7) H 06/01/24 16:58 Lymph # (Auto) 1.2 10^3/uL (0.8-4.8) 06/01/24 16:58 [place] # (Auto) 1.2 10^3/uL (0.2-0.9) H 06/01/24 16:58 Eos # (Auto) 0.0 10^3/uL (0.0-0.8) 06/01/24 16:58 Baso # (Auto) 0.1 10^3/uL (0.0-0.1) 06/01/24 16:58 Nucleated RBC % (auto) 0 % 06/01/24 16:58 Nucleated RBCs # 0.0 /100WBC 06/01/24 16:58 Sodium 137 mmol/L (136-145) 06/01/24 16:58 Potassium 3.8 mmol/L (3.5-5.1) 06/01/24 16:58 Chloride 102 mmol/L (98-107) 06/01/24 16:58 Carbon Dioxide 20 mmol/L (22-29) L 06/01/24 16:58 Anion Gap 18.8 (5-19) 06/01/24 16:58 BUN 20 mg/dL (8-23) 06/01/24 16:58 Creatinine 1.7 mg/dL (0.7-1.2) H 06/01/24 16:58 GFR Calculation 40.5 mL/min (90-130) L 06/01/24 16:58 Glucose 164 mg/dL (65-115) H 06/01/24 16:58 Calculated Osmolality 290 mOsm/kg (285-295) 06/01/24 16:58 Lactic Acid 1.9 mmol/L (0.5-2.2) 06/01/24 16:58 Calcium 8.7 mg/dL (8.5-10.5) 06/01/24 16:58 Total Bilirubin 0.4 mg/dL (0.15-1.2) 06/01/24 16:58 AST 91 U/L (0-40) H 06/01/24 16:58 ALT 116 U/L (0-41) H 06/01/24 16:58 Alkaline Phosphatase 130 U/L (40-130) 06/01/24 16:58 Creatine Kinase 51 U/L (39-308) 06/01/24 16:58 Troponin T Baseline 14 ng/L (0-15) 06/01/24 16:58 Troponin T 120 Minute 11.25 ng/L (0-15) 06/01/24 19:01 Delta Troponin T -2.75 ABS# (0-10) L 06/01/24 19:01 NT-Pro-B Natriuret Pep 1615 pg/mL (0-125) H 06/01/24 16:58 Total Protein 6.8 g/dL (6.6-8.7) 06/01/24 16:58 Albumin 2.7 g/dL (3.5-5.2) L 06/01/24 16:58 Globulin 4.1 g/dL (1.3-4.6) 06/01/24 16:58 Lipase 22 U/L (13-60) 06/01/24 16:58 Urine Color Yellow (Yellow) 06/01/24 19:24 Urine Appearance Clear (CLEAR) 06/01/24 19:24 Urine pH 5 (5-7) 06/01/24 19:24 Ur Specific [place] 1.010 (1.005-1.030) 06/01/24 19:24 Urine Protein Trace (Negative) H 06/01/24 19:24 Urine Glucose (UA) Norm (Normal) 06/01/24 19:24 Urine Ketones Negative (Negative) 06/01/24 19:24 Urine Blood Neg (Negative) 06/01/24 19:24 Urine Nitrate Negative (Negative) 06/01/24 19:24 Urine Bilirubin Neg (Negative) 06/01/24 19:24 Urine Urobilinogen Norm mg/dL (Negative) 06/01/24 19:24 Ur Leukocyte Esterase Negative (Negative) 06/01/24 19:24 Urine RBC 0-2 /hpf (0-2) 06/01/24 19:24 Urine WBC 0-5 /hpf (0-5) 06/01/24 19:24 Ur Squamous Epith Cells 0-5 /hpf (0-5) 06/01/24 19:24 Amorphous Sediment Not Reportable 06/01/24 19:24 Urine Bacteria None seen /hpf (NONE) 06/01/24 19:24 Hyaline Casts 17.37 /lpf 06/01/24 19:24 Influenza A (PCR) Negative (Negative) 06/01/24 17:04 Influenza Type B (PCR) Negative (Negative) 06/01/24 17:04 RSV (PCR) Negative (Negative) 06/01/24 17:04 SARS-CoV-2 (PCR) Negative (Negative) 06/01/24 17:04 Discharge Plan Discharge Patient Disposition: Xfer Short-Term Hosp Clinical Impression: Necrotizing pneumonia, Sepsis, Empyema Condition: Stable Referrals: Ha Montes DO [Primary Care Provider] - Print Language: Guyanese Coding Level of Care Code ED Control Panel Assembler for Chg Fwd Documented by User: Shannon Mullen MD 06/01/24 20:52 HPI - SOB/Dyspnea General: Chief Complaint: Shortness of Breath/Dyspnea Stated Complaint: SOB Time Seen by Provider: 06/01/24 16:41 History of Present Illness: HPI Narrative: 68-year-old man who presents emergency room with weakness and shortness of breath. His care was transitioned to ne at shift change awaiting CT scan results. He was hypotensive on presentation. Afebrile. He has a history of COPD and CHF. He is having inspiratory pain on the right. thought he might be a little bit confused. Related Data Home Medications ?Medication ?Instructions ?Recorded ?Confirmed spironolactone 25 mg tablet 25 mg PO DAILY 07/31/23 03/16/24 (Aldactone) aspirin 81 mg tablet,delayed 81 mg PO DAILY 03/16/24 03/16/24 release (Adult Aspirin Regimen) Previous Rx's ?Medication ?Instructions ?Recorded amlodipine 5 mg tablet 10 mg (2 x 5 mg) PO DAILY #90 tabs 03/16/24 clopidogrel 75 mg tablet (Plavix) 75 mg PO DAILY #90 tabs 03/16/24 furosemide 20 mg tablet 20 mg PO DAILY #90 tabs 03/16/24 lisinopril 40 mg tablet 40 mg PO DAILY #90 tabs 03/16/24 metoprolol succinate 25 mg 25 mg PO DAILY #90 tabs 03/16/24 tablet,extended release 24 hr metoprolol succinate 50 mg 50 mg PO DAILY #90 tabs 03/16/24 tablet,extended release 24 hr pantoprazole 40 mg tablet,delayed 40 mg PO DAILY #90 tabs 03/16/24 release (Protonix) potassium chloride 8 mEq 8 meq PO DAILY #90 tabs 03/16/24 tablet,extended release tamsulosin 0.4 mg capsule 0.4 mg PO DAILY #90 caps 03/16/24 tiotropium bromide 18 mcg capsule 1 cap inhalation DAILY 30 days #60 03/16/24 with inhalation device (Spiriva inhalations with HandiHaler) Allergies Allergy/AdvReac Type Severity Reaction Status Date / Time Penicillins Allergy ALGY-Anaphy Verified 03/16/24 13:11 laxis [facility] ED PFS: Medical History (Updated 06/01/24 @ 20:16 by Shannon Mullen MD) Alcohol abuse Lung nodule PVD (peripheral vascular disease) with claudication Atrial fibrillation Renal artery stenosis Essential hypertension History of colon polyps GERD (gastroesophageal reflux disease) Family History Mother Cancer Breast CAD (coronary artery disease) Father Hypertension Cancer Colon and Thyroid Social History Smoking and tobacco/nicotine status: never used tobacco/nicotine Second hand smoke exposure: No Alcohol intake: current Alcohol intake frequency: holidays/special occasions only Substance/Drug Use: never Adopted: No Caregiver/support person: No Lives independently: Yes Course Vital Signs: Vital signs: Vital Signs Pulse Rate 65 06/01/24 23:00 Respiratory Rate 20 H 06/01/24 22:30 Blood Pressure 96/53 06/01/24 23:00 Pulse Oximetry 98 06/01/24 23:00 Oxygen Delivery Me thod Room Air 06/01/24 16:33 MDM - SOB/Dyspnea Medical Decision Making Patient care transitioned me at shift change. Awaiting CT scan results. He has been being treated for sepsis. He has received 30 mL/kg bolus. He was hypotensive initially but blood pressure is now improved and stabilized at over [address] scan showed a consolidation with multiple areas of cavitation that may represent a necrotizing or pneumonia. At this point I broadened his antibiotics and gave him Zyvox and meropenem. Given empyema/necrotizing pneumonia patient needs to be transferred to a tertiary care center where there is pulmonary and critical care available. Patient accepted to [facility] in [place]. Dr. Mcneil excepting. Lab Data 06/01/24 16:58 06/01/24 16:58 Labs/Radiology: Radiology Impressions Chest/Abdomen/Pelvis CT 06/01/24 16:49 IMPRESSION: 1. Extensive right lower lobe consolidation with multiple areas of cavitation. This may represent necrotizing pneumonia. 2. New right paratracheal and right hilar adenopathy which may be reactive secondary to the extensive right lower lobe pneumonia but neoplastic etiologies can not be excluded. 3. New right apical pulmonary nodule measuring 1.2 cm. This is worrisome for metastatic disease. 4. Multiple cysts or cystic lesions in the right upper lobe which are new. Cavitary metastases and infection are in the differential. 5. Stable 0.8 cm left lower lobe nodule in the superior segment which was FDG avid. IMPRESSION: 1. Stable bilateral adrenal enlargement and nodularity. 2. Possible subtle wall thickening of the gallbladder without enlargement. 3. Diffuse bladder wall thickening. COMMENTS: Consistent with the [place] [employer]'s Incidental Findings Committee white paper (J Am Jorge Alberto Radiol 2018): Any incidental renal lesion less than 1 cm or classified as too small to characterize, or any incidental cystic renal lesion characterized as simple-appearing, is likely benign. No follow-up imaging is recommended for these lesions per consensus recommendations based on imaging criteria. Chest X-Ray 06/01/24 16:50 IMPRESSION: Right basilar consolidation or pneumonia. Laboratory Results WBC 22.22 10^3/uL (3.29-11.43) H 06/01/24 16:58 RBC 3.46 10^6/uL (3.85-5.65) L 06/01/24 16:58 Hgb 10.50 g/dL (11.27-16.99) L 06/01/24 16:58 Hct 32.7 % (37-53) L 06/01/24 16:58 MCV 94.5 fl (82-101) 06/01/24 16:58 MCH 30.3 pg (27-33) 06/01/24 16:58 MCHC 32.1 g/dL (30-55) 06/01/24 16:58 RDW 12.8 % (12.1-15.1) 06/01/24 16:58 Plt Count 494 10^3/cmm (157-399) H 06/01/24 16:58 MPV 9.6 fL (7.4-10.4) 06/01/24 16:58 Neut % (Auto) 88.0 % 06/01/24 16:58 Lymph % (Auto) 5.4 % 06/01/24 16:58 [place] % (Auto) 5.2 % 06/01/24 16:58 Eos % (Auto) 0.1 % 06/01/24 16:58 Baso % (Auto) 0.2 % 06/01/24 16:58 Neut # (Auto) 19.55 10^3/uL (1.8-7.7) H 06/01/24 16:58 Lymph # (Auto) 1.2 10^3/uL (0.8-4.8) 06/01/24 16:58 [place] # (Auto) 1.2 10^3/uL (0.2-0.9) H 06/01/24 16:58 Eos # (Auto) 0.0 10^3/uL (0.0-0.8) 06/01/24 16:58 Baso # (Auto) 0.1 10^3/uL (0.0-0.1) 06/01/24 16:58 Nucleated RBC % (auto) 0 % 06/01/24 16:58 Nucleated RBCs # 0.0 /100WBC 06/01/24 16:58 Sodium 137 mmol/L (136-145) 06/01/24 16:58 Potassium 3.8 mmol/L (3.5-5.1) 06/01/24 16:58 Chloride 102 mmol/L (98-107) 06/01/24 16:58 Carbon Dioxide 20 mmol/L (22-29) L 06/01/24 16:58 Anion Gap 18.8 (5-19) 06/01/24 16:58 BUN 20 mg/dL (8-23) 06/01/24 16:58 Creatinine 1.7 mg/dL (0.7-1.2) H 06/01/24 16:58 GFR Calculation 40.5 mL/min (90-130) L 06/01/24 16:58 Glucose 164 mg/dL (65-115) H 06/01/24 16:58 Calculated Osmolality 290 mOsm/kg (285-295) 06/01/24 16:58 Lactic Acid 1.9 mmol/L (0.5-2.2) 06/01/24 16:58 Calcium 8.7 mg/dL (8.5-10.5) 06/01/24 16:58 Total Bilirubin 0.4 mg/dL (0.15-1.2) 06/01/24 16:58 AST 91 U/L (0-40) H 06/01/24 16:58 ALT 116 U/L (0-41) H 06/01/24 16:58 Alkaline Phosphatase 130 U/L (40-130) 06/01/24 16:58 Creatine Kinase 51 U/L (39-308) 06/01/24 16:58 Troponin T Baseline 14 ng/L (0-15) 06/01/24 16:58 Troponin T 120 Minute 11.25 ng/L (0-15) 06/01/24 19:01 Delta Troponin T -2.75 ABS# (0-10) L 06/01/24 19:01 NT-Pro-B Natriuret Pep 1615 pg/mL (0-125) H 06/01/24 16:58 Total Protein 6.8 g/dL (6.6-8.7) 06/01/24 16:58 Albumin 2.7 g/dL (3.5-5.2) L 06/01/24 16:58 Globulin 4.1 g/dL (1.3-4.6) 06/01/24 16:58 Lipase 22 U/L (13-60) 06/01/24 16:58 Urine Color Yellow (Yellow) 06/01/24 19:24 Urine Appearance Clear (CLEAR) 06/01/24 19:24 Urine pH 5 (5-7) 06/01/24 19:24 Ur Specific [place] 1.010 (1.005-1.030) 06/01/24 19:24 Urine Protein Trace (Negative) H 06/01/24 19:24 Urine Glucose (UA) Norm (Normal) 06/01/24 19:24 Urine Ketones Negative (Negative) 06/01/24 19:24 Urine Blood Neg (Negative) 06/01/24 19:24 Urine Nitrate Negative (Negative) 06/01/24 19:24 Urine Bilirubin Neg (Negative) 06/01/24 19:24 Urine Urobilinogen Norm mg/dL (Negative) 06/01/24 19:24 Ur Leukocyte Esterase Negative (Negative) 06/01/24 19:24 Urine RBC 0-2 /hpf (0-2) 06/01/24 19:24 Urine WBC 0-5 /hpf (0-5) 06/01/24 19:24 Ur Squamous Epith Cells 0-5 /hpf (0-5) 06/01/24 19:24 Amorphous Sediment Not Reportable 06/01/24 19:24 Urine Bacteria None seen /hpf (NONE) 06/01/24 19:24 Hyaline Casts 17.37 /lpf 06/01/24 19:24 Influenza A (PCR) Negative (Negative) 06/01/24 17:04 Influenza Type B (PCR) Negative (Negative) 06/01/24 17:04 RSV (PCR) Negative (Negative) 06/01/24 17:04 SARS-CoV-2 (PCR) Negative (Negative) 06/01/24 17:04 All radiology interpretation(s) finalized by discharge Discharge Plan Discharge Patient Disposition: Xfer Short-Term Hosp Clinical Impression: Necrotizing pneumonia, Sepsis, Empyema Condition: Stable Referrals: Ha Montes DO [Primary Care Provider] - Print Language: Guyanese Coding Level of Care Code ED Control Panel Assembler for Brenton Hernandez
[2024-06-01 17:12] LABS: Basophils # 0.1 10^3/uL (0.0-0.1); Basophils % 0.2 %; Eosinophils % 0.1 %; Hematocrit 32.7 % (37-53); Lymphocytes # 1.2 10^3/uL (0.8-4.8); Lymphocytes % 5.4 %; Mean Corpuscular HGB Conc 32.1 g/dL (30-55); Mean Corpuscular Hemoglobin 30.3 pg (27-33); Mean Corpuscular Volume 94.5 fl (82-101); Mean Platelet Volume 9.6 fL (7.4-10.4); Monocytes # 1.2 10^3/uL (0.2-0.9); Monocytes % 5.2 %; Neutrophils # 19.55 10^3/uL (1.8-7.7); Nucleated Red Blood Cells % 0 %; Platelet Count 494 10^3/cmm (157-399); Red Blood Count 3.46 10^6/uL (3.85-5.65); Red Cell Distribution Width 12.8 % (12.1-15.1); White Blood Count 22.22 10^3/uL (3.29-11.43)
[2024-06-01] MEDS: sodium chloride 0.9% 1,000 ML 999 ML IV (17:28)
[2024-06-01] MEDS: AZITHROMYCIN ADD-Vantage 500 MG in 0.9% NaCl ADD-Vantage 250 ML 250 MG IV (17:29)
[2024-06-01] MEDS: cefTRIAXone 1,000 mg SDV 1000 MG IVP (17:29)
[2024-06-01 17:30] LABS: Lactic Sepsis W/Reflex 1.9 mmol/L (0.5-2.2)
[2024-06-01 17:45] LABS: Troponin(5th) Baseline 14 ng/L (0-15)
[2024-06-01 17:54] LABS: Alanine Aminotransferase 116 U/L (0-41); Albumin Level 2.7 g/dL (3.5-5.2); Alkaline Phosphatase 130 U/L (40-130); Aspartate Amino Transferase 91 U/L (0-40); Blood Urea Nitrogen 20 mg/dL (8-23); Calcium 8.7 mg/dL (8.5-10.5); Carbon Dioxide 20 mmol/L (22-29); Creatine Phosphokinase 51 U/L (39-308); Globulin 4.1 g/dL (1.3-4.6); Glomerular Filtration Rate 40.5 mL/min (90-130); Glucose 164 mg/dL (65-115); Lipase 22 U/L (13-60); NT Pro B Type Natriuretic Pept 1615 pg/mL (0-125); Total Bilirubin 0.4 mg/dL (0.15-1.2); Total Protein 6.8 g/dL (6.6-8.7)
[2024-06-01 18:00] LABS: Anion Gap 18.8 (5-19); Chloride 102 mmol/L (98-107); Osmolality Calculated 290 mOsm/kg (285-295); Potassium 3.8 mmol/L (3.5-5.1); Sodium 137 mmol/L (136-145)
[2024-06-01] MEDS: iohexol 350 mg/mL 500 mL Btl (per mL) IV (18:20)
[2024-06-01 18:35] LABS: Influenza A NEGATIVE (Negative); Influenza B NEGATIVE (Negative); Respiratory Syncytial Virus Ce NEGATIVE (Negative); SARS-CoV-2 PCR NEGATIVE (Negative)
[2024-06-01] MEDS: ondansetron 2 mg/ML SDV 2 mL 4 MG IVP (18:47)
--- NOTE | 2024-06-01 19:03 | ECG_ITS ---
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
[2024-06-01 19:28] LABS: Troponin 5 2HR 11.25 ng/L (0-15)
[2024-06-01 19:29] LABS: Troponin 5 2HR Delta -2.75 ABS# (0-10)
[2024-06-01] MEDS: meropenem 500 mg SDV IVP (19:45)
[2024-06-01] MEDS: linezolid premix 600 MG/300 ML PREMIX 300 MG IV (19:45)
[2024-06-01 19:59] LABS: Bacteria Urine None Seen /hpf; Hyaline Casts Urine 17.37 /lpf; RBC Urine 0-2 /hpf (0-2); Squamous Epithelial Cell Urine 0-5 /hpf (0-5); WBC Urine 0-5 /hpf (0-5)
[2024-06-01 20:22] LABS: Add Urine Microscopic? YES; Bilirubin Urine Neg (Negative); Blood Urine Neg (Negative); Glucose Urine UA Norm (Normal); Ketones Urine Negative (Negative); Leukocyte Esterase Urine Negative (Negative); Nitrate Urine Negative (Negative); Protein Urine Trace (Negative); Urine Appearance Clear (CLEAR); Urine Color Yellow (Yellow); Urobilinogen Urine Norm (Negative); pH Urine 5 (5-7)
== END 2024-06-01 23:01 | disposition short-term general hospital (02) ==
PROVIDERS: Family Medicine; Emergency Provider Emergency Medicine; PCP Family Medicine
DX: J85.0 Gangrene and necrosis of lung (principal); A41.9 Sepsis, unspecified organism; Z11.52 Encounter for screening for COVID-19; I10 Essential (primary) hypertension
CPT/HCPCS: 36415; 71045; 71275; 74177; 80053; 81001; 82550; 83605; 83690; 83880; 84484; 85025; 87040; 87070; 87205; 87637; 87801; 93005; 96361; 96365; 96367; 96375; 99285; J0456; J0696; J2020; J2185; J2405; J7030; J7050

== ENCOUNTER 2024-06-11 14:17 | Emergency (ER) | payer BC, SELFPAY ==
[2024-06-11 14:34] VITALS: BP 148/83; PULSE 90; RESP 18; TEMP 36.8; O2SAT 97; BMI 33.2
--- NOTE | 2024-06-11 16:28 | ED_ITS ---
HPI - Wound/Laceration General: Chief Complaint: Wound/Laceration Stated Complaint: lt arm lac Time Seen by Provider: 06/11/24 16:16 History of Present Illness: Patient presents after a fall with skin tear to his left arm. He had some difficulty controlling bleeding so he came to the emergency room. He is on aspirin and Plavix. No head injury. No loss of consciousness. No deformities. No other problems. Related Data Home Medications ?Medication ?Instructions ?Recorded ?Confirmed spironolactone 25 mg tablet 25 mg PO DAILY 07/31/23 (Aldactone) aspirin 81 mg tablet,delayed 81 mg PO DAILY 03/16/24 0 03/16/24 release (Adult Aspirin Regimen) Previous Rx's ?Medication ?Instructions ?Recorded amlodipine 5 mg tablet 10 mg (2 x 5 mg) PO DAILY #9 0 tabs 03/16/24 clopidogrel 75 mg tablet (Plavix) 75 mg PO DAILY #90 t abs 03/16/24 furosemide 20 mg tablet 20 mg PO DAILY #90 tabs 03/03 06/25 lisinopril 40 mg tablet 40 mg PO DAILY #90 tabs 03/03 06/25 metoprolol succinate 25 mg 25 mg PO DAILY #90 tabs tablet,extended release 24 hr metoprolol succinate 50 mg 50 mg PO DAILY #90 tabs tablet,extended release 24 hr pantoprazole 40 mg tablet,delayed 40 mg PO DAILY #90 t abs 03/16/24 release (Protonix) potassium chloride 8 mEq 8 meq PO DAILY #90 tabs 03/03 06/25 tablet,extended release tamsulosin 0.4 mg capsule 0.4 mg PO DAILY #90 caps tiotropium bromide 18 mcg capsule 1 cap inhalation JUAN LY 30 days #60 03/16/24 with inhalation device (Spiriva inhalations with HandiHaler) Allergies Allergy/AdvReac Type Severity Reaction Status Date / Time Penicillins Allergy ALGY-Anaphy Verified 03/16/24 13:11 laxis Review of Systems Narrative: Constitutional symptoms: Negative except as documented in HPI. Skin symptoms: Negative except as documented in HPI. Eye symptoms: Negative except as documented in HPI. ENMT symptoms: Negative except as documented in HPI. Respiratory symptoms: Negative except as documented in HPI. Cardiovascular symptoms: Negative except as documented in HPI. Gastrointestinal symptoms: Negative except as documented in HPI. Genitourinary symptoms: Negative except as documented in HPI. Musculoskeletal symptoms: Negative except as documented in HPI. Neurologic symptoms: Negative except as documented in HPI. Psychiatric symptoms: Negative except as documented in HPI. Endocrine symptoms: Negative except as documented in HPI. [facility] ED PFSH: Medical History (Updated 06/11/24 @ 16:58 by Shannon Mullen MD) Alcohol abuse Lung nodule PVD (peripheral vascular disease) with claudication Atrial fibrillation Renal artery stenosis Essential hypertension History of colon polyps GERD (gastroesophageal reflux disease) Family History Mother Cancer Breast CAD (coronary artery disease) Father Hypertension Cancer Colon and Thyroid Social History Smoking and tobacco/nicotine status: never used tobacco/nicotine Second hand smoke exposure: No Alcohol intake: current Alcohol intake frequency: holidays/special occasions only Substance/Drug Use: never Adopted: No Caregiver/support person: No Lives independently: Yes Physical Exam Narrative: EXAM NARRATIVE: General: Alert, no acute distress. Skin: warm and dry, skin tear to the left proximal forearm. Head: Normocephalic Neck: Trachea midline Eye: Extraocular movements are intact. Ears, nose, mouth and throat: Oral mucosa moist Respiratory: Respirations are non-labored Musculoskeletal: Normal ROM Neurological: Alert and oriented, No focal neurological deficit observed. Psychiatric: Cooperative, appropriate mood & affect. Course Vital Signs: Vital signs: Vital Signs Temperature 98.2 F 06/11/24 14:34 Pulse Rate 75 06/11/24 17:54 Respiratory Rate 18 06/11/24 14:34 Blood Pressure 124/76 06/11/24 17:54 Pulse Oximetry 97 06/11/24 17:54 Oxygen Delivery Me thod Room Air 06/11/24 17:53 MDM - Wound/Laceration Medical Decision Making Assessment and plan: Skin tear ?Dressing replaced. Bleeding controlled. Life-saving tetanus was administered. - Discharged home - Discussed plan with patient. Answered any questions. - Evaluation and treatment of this problem were appropriate in the emergency setting. No radiology studies performed this visit Discharge Plan Discharge Patient Disposition: Home Clinical Impression: Skin tear Condition: Stable Prescriptions: No Action aspirin [Adult Aspirin Regimen] 81 mg tablet,delayed release (DR/EC) 81 mg PO DAILY amlodipine 5 mg tablet 10 mg PO DAILY Qty: 90 3RF clopidogrel [Plavix] 75 mg tablet 75 mg PO DAILY Qty: 90 3RF furosemide 20 mg tablet 20 mg PO DAILY Qty: 90 3RF lisinopril 40 mg tablet 40 mg PO DAILY Qty: 90 3RF metoprolol succinate 50 mg tablet extended release 24 hr 50 mg PO DAILY Qty: 90 3RF metoprolol succinate 25 mg tablet extended release 24 hr 25 mg PO DAILY Qty: 90 3RF Rx Instructions: Take in addition to the 50mg tablet. pantoprazole [Protonix] 40 mg tablet,delayed release (DR/EC) 40 mg PO DAILY Qty: 90 3RF potassium chloride 8 mEq tablet extended release 8 meq PO DAILY Qty: 90 3RF tamsulosin 0.4 mg capsule 0.4 mg PO DAILY Qty: 90 3RF Spiriva with HandiHaler 18 mcg capsule, w/inhalation device 1 cap inhalation DAILY 30 Days Qty: 60 11RF Rx Instructions: puncture 1 cap using device; one dose = 2 inhalations spironolactone [Aldactone] 25 mg tablet 25 mg PO DAILY Discharge Orders: Discharge ED (Routine); Ordered 06/11/24 Ordered By: Shannon Mullen Referrals: Ha Montes DO [Primary Care Provider] - Discharge Diet: Usual diet Discharge Activity: Increase activity as tolerated Patient Instructions: Skin Tear (ED), Opioid Safety, Pain Management, Wound Care (General) Activity Restrictions/Additional Instructions: Thank you for choosing [facility] for your healthcare needs today. Please realize this is an emergency room and that we are providing you with a medical screening exam and this may not be complete and all inclusive of all the testing and or work up that you may need to determine your ailment or severity of your illness. You have been screened and evaluated and felt safe for discharge. Health conditions do change or evolve sometimes and as such it is important that you follow up with your Primary Doctor to be re checked, 3-5 days is a general good time frame for follow up. You are always welcome to return to the ED for re assessment if your symptoms are worsening or you have new concerns Print Language: Urdu Coding Level of Care Code ED Creel Hand for Brenton Hernandez
[2024-06-11] MEDS: tetanus-dipt-pertussis 0.5 mL SDV IM (17:02)
[2024-06-11 17:53] VITALS: BP 124/76; PULSE 75; O2SAT 97
[2024-06-11 17:54] VITALS: BP 124/76; PULSE 75; O2SAT 97
== END 2024-06-11 17:54 | disposition home or self-care (01) ==
PROVIDERS: Emergency Provider Emergency Medicine; PCP Family Medicine
DX: S41.112A Laceration without foreign body of left upper arm, initial encounter (principal); Z79.02 Long term (current) use of antithrombotics/antiplatelets; I10 Essential (primary) hypertension; X58.XXXA Exposure to other specified factors, initial encounter; Z23 Encounter for immunization
CPT/HCPCS: 90471; 90715; 99283

== ENCOUNTER 2024-06-24 11:01 | Outpatient (CLI) | payer BC, SELFPAY ==
--- NOTE | 2024-06-24 11:08 | CTR_ITS ---
PROCEDURE INFORMATION: Exam: CT Chest Without Contrast; Diagnostic Exam date and time: 06/24/2024 11:27 AM Age: 68 years old Clinical indication: Abnormal findings; Abnormal radiologic exam of lung or chest; Follow up, HX of pneumonia, shortness of breath, cough; Additional info: Tobacco use/abnormal finding of lung field TECHNIQUE: Imaging protocol: Diagnostic computed tomography of the chest without contrast. Radiation optimization: All CT scans at this facility use at least one of these dose optimization techniques: automated exposure control; mA and/or kV adjustment per patient size (includes targeted exams where dose is matched to clinical indication); or iterative reconstruction. COMPARISON: CT angio chest w abd pel w con 06/01/2024 6:12 PM RADIATION DOSE METRICS: Total DLP (mGy-cm): 597.76 FINDINGS: Lungs: Improving but persistent large consolidative pneumonia in the right lower lobe. The cavitary areas are smaller and less numerous than before. The small right apical pulmonary nodule has almost entirely resolved and was inflammatory. The 10 mm left lower lobe pulmonary nodule is stable. Calcified granuloma in the left lower lobe. Focal area of infiltrate or fibrosis in the superior segment of the left lower lobe is stable. The right upper lobe pulmonary infiltrates have improved. Pleural spaces: Slightly increasing still small left pleural effusion. Heart: Unremarkable. No cardiomegaly. No pericardial effusion. Coronary arteries: Coronary artery calcifications. Lymph nodes: Central lymph nodes are barely visible. Vasculature: Unremarkable. No aortic aneurysm. Bones/joints: Unremarkable. No acute fracture. Soft tissues: Unremarkable. CT/CT chest wo con [id number] IMPRESSION: 1. Improving but persistent partially cavitary right lower lobe pneumonia. 2. Almost totally resolved prior right apical nodule.
[2024-06-24 11:43] LABS: Basophils % 0.4 %; Eosinophils # 0.4 10^3/uL (0.0-0.8); Eosinophils % 5.3 %; Hematocrit 38.4 % (37-53); Lymphocytes # 1.7 10^3/uL (0.8-4.8); Lymphocytes % 21.9 %; Mean Corpuscular HGB Conc 31.8 g/dL (30-55); Mean Corpuscular Hemoglobin 31.4 pg (27-33); Mean Corpuscular Volume 98.7 fl (82-101); Mean Platelet Volume 9.4 fL (7.4-10.4); Monocytes # 0.5 10^3/uL (0.2-0.9); Neutrophils # 5.09 10^3/uL (1.8-7.7); Neutrophils % 66.1 %; Nucleated Red Blood Cells % 0 %; Platelet Count 241 10^3/cmm (157-399); Red Blood Count 3.89 10^6/uL (3.85-5.65); Red Cell Distribution Width 14.5 % (12.1-15.1)
[2024-06-24 11:47] LABS: Alanine Aminotransferase 18 U/L (0-41); Albumin Level 3.5 g/dL (3.5-5.2); Alkaline Phosphatase 113 U/L (40-130); Anion Gap 16.1 (5-19); Aspartate Amino Transferase 17 U/L (0-40); Blood Urea Nitrogen 13 mg/dL (8-23); Calcium 9.1 mg/dL (8.5-10.5); Carbon Dioxide 24 mmol/L (22-29); Chloride 104 mmol/L (98-107); Ferritin 338 ng/mL (30-400); Globulin 3.6 g/dL (1.3-4.6); Glomerular Filtration Rate 84.4 mL/min (90-130); Glucose 111 mg/dL (65-115); Iron 59 ug/dL (59-158); Osmolality Calculated 291 mOsm/kg (285-295); Percent Saturation 18.7 % (20-50); Potassium 4.1 mmol/L (3.5-5.1); Sodium 140 mmol/L (136-145); Total Bilirubin 0.3 mg/dL (0.15-1.2); Total Iron Binding Capacity 314 mcg/dl; Total Protein 7.1 g/dL (6.6-8.7); Unsaturated Iron Binding 255 ug/dL (112-347)
== END 2024-06-24 11:02 | disposition home or self-care (01) ==
LOC: RAD 11:02 → LAB 11:03 → RAD 11:20
PROVIDERS: PCP Family Medicine; Visit Provider Internal Medicine
DX: R91.8 Other nonspecific abnormal finding of lung field (principal); I10 Essential (primary) hypertension; I48.20 Chronic atrial fibrillation, unspecified; D64.9 Anemia, unspecified; J18.9 Pneumonia, unspecified organism; J44.9 Chronic obstructive pulmonary disease, unspecified; Z72.0 Tobacco use; J84.10 Pulmonary fibrosis, unspecified; J90 Pleural effusion, not elsewhere classified; I25.10 Atherosclerotic heart disease of native coronary artery without angina pectoris
CPT/HCPCS: 36415; 71250; 80053; 82728; 83540; 83550; 85025

== ENCOUNTER 2024-09-27 11:53 | Outpatient (CLI) | payer BC, SELFPAY ==
--- NOTE | 2024-09-27 12:00 | CT_ITS ---
WS: [id number] CT CHEST TECHNIQUE: Noncontrast CT of the chest with coronal and sagittal reformatted images. CLINICAL INFORMATION: ABSCESS OF LUNG WITH PNEUMONIA COMPARISON: CT 06/24/2024 DLP: 643.[address] scans at [facility] use at least one of these dose optimization techniques: automated exposure control; mA and/or kV adjustment per patient size (includes targeted exams where dose is matched to clinical indication); or iterative reconstruction. FINDINGS: Residual small RIGHT pleural effusion unchanged. Subsegmental atelectasis RIGHT lower lobe with parenchymal scarring. The previously described cavitation has improved and nearly resolved. Findings compatible with interval response to therapy. Small cavitary nodule in the LEFT lower lobe slightly progressed today measuring 1.5 x 1.0 cm. A few small satellite nodules and inflammatory opacities in the RIGHT lower lobe some in a tree-in-bud configuration. Small amount of parenchymal fibrosis RIGHT upper lobe. Stable area of parenchymal fibrosis with cavitation in the superior segment LEFT lower lobe near the fissure. A few patchy RIGHT perihilar opacities. Pleural thickening RIGHT middle lobe. Aortic calcification. Coronary calcification. No axillary lymphadenopathy. Stable LEFT adrenal adenoma measuring 2.7 cm. RIGHT adrenal gland is normal. Splenic granulomas. LEFT renal cyst. Splenic artery calcification. Moderate thoracic kyphosis with ankylosis. CT/CT chest wo con [id number] IMPRESSION: 1. Continued interval improvement in the RIGHT lower lobe cavitary pneumonia with a small amount of residual parenchymal consolidation and fibrosis. 2. Stable small RIGHT pleural effusion. 3. Enlarging cavitary nodule LEFT lower lobe today measuring 1.5 x 1.0 cm. 4. Tree-in-bud in the RIGHT middle lobe and RIGHT lower lobe infectious or inf lammatory.
== END 2024-09-27 11:54 | disposition home or self-care (01) ==
LOC: RAD 11:54
PROVIDERS: PCP Family Medicine; Visit Provider Internal Medicine
DX: J85.1 Abscess of lung with pneumonia (principal); R91.8 Other nonspecific abnormal finding of lung field; J44.9 Chronic obstructive pulmonary disease, unspecified
CPT/HCPCS: 71250

== ENCOUNTER 2024-11-30 01:44 | Inpatient (IN) | payer MEDICARE, BC, SELFPAY ==
[2024-11-30] VITALS (17 sets, daily range): BP systolic 114–133; BP diastolic 63–82; PULSE 74–103; RESP 14–25; TEMP 36.4–36.9; O2SAT 93–100; BMI 35.1
--- OUTSIDE RECORDS SUMMARY | 2024-11-30 01:51 | XMS_ITS | Clinical Summary ---
Author Organization [facility] Facility Address [address] [place] [id number] Care Team Providers Care Professional Development Manager Name Role Phone Unavailable Primary Care Provider Unavailabl e Family History Medical History Relation Comments Cancer Father 2 Cancer Mother 2 Heart disease Mother 2 Relation Status Comments Father 1 Alive Father 2 Mother 1 (Age 78) Mother 2 Social History Tobacco Use Types Packs/Day Years Used Date Smoking Tobacco: Every Day Alcohol Use Standard Drinks/Week Comments Yes 0 (1 standard drink = 0.6 oz pure alcohol) Alcoholic Drinks/day: 1-2 drinks per day Sex and Gender Information Value Date Recorded Sex Assigned at Not on file Legal Sex Male 12:37 PM EST Gender Identity Not on file Sexual Orientation Not on file Plan of Treatment Health Maintenance Due Date Last Done Comments Pneumococcal Vaccine: 50+ Ye ars (1 of 2 - PCV) 1976 Colorectal Cancer Screening: Annual FOBT 2006 Colorectal Cancer Screening: Colonoscopy 2006 Colorectal Cancer Screening: Sigmoidoscopy 2006 Influenza Vaccine (#1) 2024 Hepatitis B Vaccine Aged Out No longe r eligible based on patient's age to complete this topic
--- OUTSIDE RECORDS SUMMARY | 2024-11-30 01:51 | XMS_ITS | Clinical Summary ---
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 Gender Identity Not on file Sexual Orientation Not on file Plan of Treatment Health Maintenance Due Date Last Done Comments DTAP/TDAP/TD VACCINES (1 - Tdap) 1976 FIT-DNA Q 3 years 2002 FIT/FOBT Q 1 year 2002 Flex Sig/CT Colonography Q 5 years 2002 PNEUMOCOCCAL VACCINE 50+ YEARS (1 of 1 - PCV) 07/19/19 08 ZOSTER VACCINE (1 of 2) 07/19/2007 COLORECTAL SCREENING 02/11/2013 02/12/2008 Colorectal Cancer Screening 02/11/2013 INFLUENZA VACCINE (#1) 2024 COVID-19 Vaccine ( - season) 2024 RSV VACCINE (60+ or ) (1 - 1-dose 75+ series) 2032 Procedures Procedure Name Priority Date/Time Associated Diagnosis Comments ENDOSCOPY, COLON, SCREENING Routine 02/12/2008 Family History of Colon Cancer from Last 3 Months or Most Recently Relevant to Health Maintenance Results * ENDOSCOPY, COLON, MEDICARE SCREENING (02/12/2008) Andrea Spear MD GI PROCEDURE ORDERABLES Fin al Result from Last 3 Months or Most Recently Relevant to Health Maintenance Insurance [facility]
--- OUTSIDE RECORDS SUMMARY | 2024-11-30 01:51 | XMS_ITS | Encounter Summary ---
Author Organization [facility] Address [address] [place] [address] Care Team Providers Care Records Coordinator Name Role Phone Unavailable Primary Care Provider Unavailabl e Encounter Details Date Type Department Care Team (Late st Contact Info) Description 01/27/[address] 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 Gender Identity Not on file Sexual Orientation Not on file documented as of this encounter Plan of Treatment Not on file documented as of this encounter Procedures Procedure Name Priority Date/Time Associated Diagnosis Comments PATHOLOGY Routine 02/12/2008 11:52 AM CLERICAL ORDER FILLER documented in this encounter Results * PATHOLOGY (02/12/2008 11:52 AM CLERICAL ORDER FILLER) PATHOLOGY/CYT OLOGY REPORT [facility] Anatomic Pathology Dept [address] [facility] [address] Patient: REED CARLSON Accn No: [id number] Collected: 02/12/2008 11:52:00 AM SURGICAL PATHOLOGY FINAL REPORT Diagnosis A. Colon, cecum, biopsy - adenomatous polyp(s), multiple fragments. Leanne Mackay M.D. (Electronicall y signed by) Verified: 02/15/08 OLIVE/RENEE Clinical Information Polyp. Specimen Source AColon, CECUM Microscopic Description Microscopic examination was performed. Gross Description Part A. Submitted in a container of formalin labelled Anya - #1 cecal colon polyp are ten pinkish-ferraro soft tissue fragments ranging in size from 0.2 to 0.5 cm. The specimen is submitted entirely in A1-A2 with five specimens submitted in each block. DLS/WLS INTERFACE SYSTEM 02/12/2008 11:5 2 AM CLERICAL ORDER FILLER us Alberto Blandon MD PATHOLOGY/CYTOLOGY ORDERABL ES Final Result INTERFACE SYSTEM Refer to clinic/hospital department documented in this encounter Visit Diagnoses Not on filedocumented in this encounter
--- NOTE | 2024-11-30 01:52 | ECG_ITS ---
[facility]: 2024-[facility]30 Pat Name: Michael Joyner Department: Room: ED Gender: Male Title Abstractor: : 1955 Requested By: Ha Nicole Order Number: [id number] Ledbetter MD: Crow Farias M.D. Measurements Intervals [place] Rate: 92 P: 238 WV: 133 QRS: 22 QRSD: 80 T: 46 QT: 326 QTc: 404 Interpretive Statements ECTOPIC ATRIAL RHYTHM LOW QRS VOLTAGE IN PRECORDIAL LEADS [QRS DEFLECTION < 1.0 mV IN CHEST LEADS] NONSPECIFIC T-WAVE ABNORMALITY Compared to ECG 06/01/2024 19:03:18 Low QRS voltage now present T-wave abnormality now present Myocardial infarct finding no longer present Electronically Signed On 12-02-2024 08:46:05 CDT by Crow Farias M.D. [id number]
--- NOTE | 2024-11-30 02:03 | XRR_ITS ---
PROCEDURE INFORMATION: Exam: XR Chest Exam date and time: 11/30/2024 2:03 AM Age: 69 years old Clinical indication: Shortness of breath; C/O SOB. History of copd. TECHNIQUE: Imaging protocol: Radiologic exam of the chest. Views: 1 view. COMPARISON: CT chest con [id number] 09/27/2024 12:16 PM FINDINGS: Lungs: Mild central interstitial opacification is noted. Pleural spaces: A medium/large left pleural effusion with associated atelectasis is present. Heart/Mediastinum: Unremarkable. No cardiomegaly. Bones/joints: Unremarkable. XR/XR chest 1V portable [id number] IMPRESSION: 1. Medium/large left pleural effusion. 2. Findings suggestive of mild pulmonary vascular congestion.
[2024-11-30 02:08] LABS: Hematocrit 37.1 % (37-53); Hemoglobin 12.00 g/dL (11.27-16.99); Mean Corpuscular HGB Conc 32.3 g/dL (30-55); Mean Corpuscular Hemoglobin 30.5 pg (27-33); Mean Corpuscular Volume 94.2 fl (82-101); Nucleated Red Blood Cells % 0 %; Platelet Count 403 10^3/cmm (157-399); Red Blood Count 3.94 10^6/uL (3.85-5.65); White Blood Count 13.18 10^3/uL (3.29-11.43)
[2024-11-30 02:14] LABS: INR 0.99 (0.8-1.2); Prothrombin Time 13.80 SECONDS (12.1-14.9)
[2024-11-30 02:15] LABS: Partial Thromboplastin Time 35.6 SECONDS (23.9-36.7)
[2024-11-30 02:21] LABS: Troponin(5th) Baseline 13 ng/L (0-15)
[2024-11-30 02:31] LABS: Alanine Aminotransferase 13 U/L (0-41); Albumin Level 3.5 g/dL (3.5-5.2); Alkaline Phosphatase 96 U/L (40-130); Anion Gap 18.6 (5-19); Aspartate Amino Transferase 17 U/L (0-40); Blood Urea Nitrogen 24 mg/dL (8-23); Calcium 8.8 mg/dL (8.5-10.5); Carbon Dioxide 23 mmol/L (22-29); Chloride 102 mmol/L (98-107); Creatinine Clr Calc Pharmacy 69.6704; Globulin 2.9 g/dL (1.3-4.6); Glucose 128 mg/dL (65-115); NT Pro B Type Natriuretic Pept 372 pg/mL (0-125); Osmolality Calculated 294 mOsm/kg (285-295); Potassium 4.6 mmol/L (3.5-5.1); Sodium 139 mmol/L (136-145); Total Protein 6.4 g/dL (6.6-8.7)
--- NOTE | 2024-11-30 02:48 | CTR_ITS ---
PROCEDURE INFORMATION: Exam: CTA Chest With Contrast Exam date and time: 11/30/2024 3:39 AM Age: 69 years old Clinical indication: Shortness of breath and tachypnea and other: Tachycardia; SOB with hypoxia, tachypnea, and tachycardia. Recent history of pneumonia and had guided left lung biopsy with blood patch earlier this month. ; Additional info: Hypoxia, tachycardia, tachypnea, huggins TECHNIQUE: Imaging protocol: Computed tomographic angiography of the chest with contrast. Exam focused on the arteries. 3D rendering (Not supervised by radiologist): MIP and/or 3D reconstructed images were created by the technologist. Radiation optimization: All CT scans at this facility use at least one of these dose optimization techniques: automated exposure control; mA and/or kV adjustment per patient size (includes targeted exams where dose is matched to clinical indication); or iterative reconstruction. Contrast material: OMNI 350; Contrast volume: 90 ml; Contrast route: INTRAVENOUS (IV); COMPARISON: CT angio chest w abd pel w con 06/01/2024 6:12 PM RADIATION DOSE METRICS: Total DLP (mGy-cm): 593.32 FINDINGS: Pulmonary arteries: No acute pulmonary embolus is identified. Aorta: Mild atherosclerotic changes of the thoracic aorta and its major branch vessels is noted. Lungs: Mild scarring of the right lower lobe secondary to prior cavitary pneumonia. Pleural spaces: A large left pleural effusion with associated atelectasis is present. A small right pleural effusion with associated atelectasis is present. Previously noted left lower lobe cavitary lesion is not well characterized secondary to large pleural effusion. Rightward cardiomediastinal shift secondary to mass effect from large left pleural effusion. Heart: Unremarkable. No cardiomegaly. No pericardial effusion. Lymph nodes: Unremarkable. No enlarged lymph nodes. Adrenal glands: The bilateral adrenal glands are mildly thickened, which is nonspecific but can be seen in the setting of adenomatous hyperplasia. Bones/joints: Degenerative joint and disc disease is seen in the imaged spine. Soft tissues: Unremarkable. CT/CT angio chest PE protcl [id number] IMPRESSION: 1. No acute pulmonary embolus or evidence of acute right heart strain. 2. Large left pleural effusion. 3. Small right pleural effusion. 4. Mass effect from large left pleural effusion resulting in rightward cardiomediastinal shift.
--- NOTE | 2024-11-30 03:03 | ED_ITS ---
HPI - SOB/Dyspnea 2 General: Chief Complaint: Shortness of Breath/Dyspnea Stated Complaint: sob Time Seen by Provider: 11/30/24 01:45 History of Present Illness: HPI Narrative: Patient with history of chronic obstructive pulmonary disease (mild on pulmonary function testing), atrial fibrillation with defibrillator (implantable cardioverter-defibrillator), and prior severe pneumonia in June presents with 8 days of significant exertional dyspnea. Reports ?pseudo-orthopnea?: typically improves after 1?2 minutes when lying flat with two pillows, but tonight orthopnea persisted despite adding a pillow. On arrival, oxygen saturation was 88% on room air, improved after one nebulizer treatment and to 94% on 2 L oxygen; later off oxygen while ?working to keep? saturations. Denies home oxygen or CPAP use. Long-term smoker (started at age 19). Residual pleuritic chest pain at the left lung after CT-guided biopsy with blood patch, pain 1/10 and improving. Denies recent falls. Uncertain about weight gain; notes sock indentations at times. Prior B-type natriuretic peptide ~1500 for almost two years. Ejection fraction normal on echocardiogram 2 years ago with trivial valvular regurgitation. No leg redness/swelling suggestive of deep vein thrombosis by history. No clear fever, though forehead feels warm. Related Data Home Medications ?Medication ?Instructions ?Recorded ?Confirmed spironolactone 25 mg tablet 25 mg PO DAILY 07/31/23 (Aldactone) aspirin 81 mg tablet,delayed 81 mg PO DAILY 03/16/24 0 09/14/24 release (Adult Aspirin Regimen) Previous Rx's ?Medication ?Instructions ?Recorded furosemide 20 mg tablet 20 mg PO DAILY #90 tabs 03/03 06/25 lisinopril 40 mg tablet 40 mg PO DAILY #90 tabs 03/03 06/25 metoprolol succinate 25 mg 25 mg PO DAILY #90 tabs tablet,extended release 24 hr metoprolol succinate 50 mg 50 mg PO DAILY #90 tabs tablet,extended release 24 hr pantoprazole 40 mg tablet,delayed 40 mg PO DAILY #90 t abs 03/16/24 release (Protonix) potassium chloride 8 mEq 8 meq PO DAILY #90 tabs 03/03 06/25 tablet,extended release tiotropium bromide 18 mcg capsule 1 cap inhalation JUAN LY 30 days #60 03/16/24 with inhalation device (Spiriva inhalations with HandiHaler) amlodipine 5 mg tablet See Rx Instructions .Route 0 10/26/24 .COMPLEX #90 tabs Allergies Allergy/AdvReac Type Severity Reaction Status Date / Time Penicillins Allergy ALGY-Anaphy Verified 09/14/24 13:22 laxis PFSH ED 2 PFSH: Medical History (Updated 11/30/24 @ 03:09 by Ha Huber MD) Lung nodule PVD (peripheral vascular disease) with claudication Atrial fibrillation Renal artery stenosis Essential hypertension History of colon polyps GERD (gastroesophageal reflux disease) Family History Mother Cancer Breast CAD (coronary artery disease) Father Hypertension Cancer Colon and Thyroid Social History Smoking and tobacco/nicotine status: never used tobacco/nicotine Second hand smoke exposure: No Alcohol intake: current Alcohol intake frequency: holidays/special occasions only Substance/Drug Use: never Adopted: No Caregiver/support person: No Lives independently: Yes Physical Exam 2 Const: COMMON NORMALS: no acute distress, patient oriented x3 and alert HENMT: COMMON NORMALS: normocephalic and atraumatic HEAD & SCALP: n ormocephalic and atraumatic Eye: COMMON NORMALS: Equal, round and reactive pupils present, EOMs intact bilaterally and no scleral icterus PUPIL: Yes Equal, round and reactive pupils present Neck/C-Spine: COMMON NORMALS: no JVD Resp: OTHER: Decreased breath sounds on the left compared with right. Mild crackles in both lung bases. No wheezes mild tachypnea. Cardio: COMMON NORMALS: no JVD, regular rate and regular rhythm RATE: r egular rate RHYTHM: regular rhythm OTHER: 1+ pitting edema to the midshin. GI: COMMON NORMALS: Normal to inspection, nondistended, normoactive bowel sounds present, Soft to palpation and non-tender PALPATION: Yes Soft to palpation Neuro: COMMON NORMALS: patient oriented x3 SENSORIUM/ORIENTATION: Yes alert Skin: COMMON NORMALS: no rashes or lesions noted GENERAL SKIN EXAM: no rashes or lesions noted Course 2 Vital Signs: Vital signs: Vital Signs Temperature 98.5 F 11/30/24 01:44 Pulse Rate 84 11/30/24 02:22 Respiratory Rate 21 H 11/30/24 02:22 Blood Pressure 114/63 11/30/24 02:22 Pulse Oximetry 96 11/30/24 02:22 Oxygen Delivery Me thod Nasal Cannula 11/30/24 02:22 Oxygen Flow Rate 1 11/30/24 02:22 MDM - SOB/Dyspnea Medical Decision Making EKG: Time?0146?sinus rhythm, rate of 92, no ST segment elevation or depression, no T wave inversions, QTc = 375. Patient with mild, chronic obstructive pulmonary disease and history of atrial fibrillation (not in afib since ablation) presents with 8 days of exertional dyspnea and persistent orthopnea tonight. Initial oxygen saturation 88% on room air, improved after nebulizer and 2 L oxygen. Recent benign lung biopsy with blood patch; no home oxygen or CPAP. BP 120/79, respiratory rate ~30. Oxygen saturation improved to 94% on 2 L. Physical exam notable for orthopnea, mild basilar crackles, decreased breath sounds at bases, and 1?2+ pitting edema; abdomen protuberant. BNP is hardly elevated at 300. Troponin is stable. Chest x-ray shows a large left pleural effusion and some vascular congestion, likely the cause of his dyspnea on exertion. CT of the chest will be performed to rule out PE and other etiology. He is newly requiring supplemental oxygen to keep levels above 90%. He arrives breathing 30 times a minute at rest to keep saturations above 90%. He will be placed on a short stent of BiPAP to see if this helps. I spoke with the hospitalist team and they will admit him for further observation care and consideration for analysis of the fluid in the the left pleural space which could be oncologic in nature or blood or simple pleural effusion. Differential diagnosis includes congestive heart failure/fluid overload given orthopnea, edema, crackles, and history of elevated B-type natriuretic peptide. Pneumonia considered despite prior clear chest radiograph cases. Pulmonary embolism considered Chest radiograph, ECG, troponin, B-type natriuretic peptide, comprehensive metabolic panel ordered. Nebulizer given with improvement. Oxygen titrated as needed. Lab Data 11/30/24 01:28 11/30/24 01:28 Labs/Radiology: Radiology Impressions Chest X-Ray 11/30/24 02:03 IMPRESSION: 1. Medium/large left pleural effusion. 2. Findings suggestive of mild pulmonary vascular congestion. Laboratory Results WBC 13.18 10^3/uL (3.29-11.43) H 11/30/24 01:28 RBC 3.94 10^6/uL (3.85-5.65) 11/30/24 01:28 Hgb 12.00 g/dL (11.27-16.99) 11/30/24 01:28 Hct 37.1 % (37-53) 11/30/24 01:28 MCV 94.2 fl (82-101) 11/30/24 01:28 MCH 30.5 pg (27-33) 11/30/24 01:28 MCHC 32.3 g/dL (30-55) 11/30/24 01:28 RDW 13.2 % (12.1-15.1) 11/30/24 01:28 Plt Count 403 10^3/cmm (157-399) H 11/30/24 01:28 MPV 9.3 fL (7.4-10.4) 11/30/24 01:28 Neut % (Auto) 55.7 % 11/30/24 01:28 Lymph % (Auto) 14.9 % 11/30/24 01:28 [place] % (Auto) 9.7 % 11/30/24 01:28 Eos % (Auto) 18.1 % 11/30/24 01:28 Baso % (Auto) 1.4 % 11/30/24 01:28 Neut # (Auto) 7.33 10^3/uL (1.8-7.7) 11/30/24 01:28 Lymph # (Auto) 2.0 10^3/uL (0.8-4.8) 11/30/24 01:28 [place] # (Auto) 1.3 10^3/uL (0.2-0.9) H 11/30/24 01:28 Eos # (Auto) 2.4 10^3/uL (0.0-0.8) H 11/30/24 01:28 Baso # (Auto) 0.2 10^3/uL (0.0-0.1) H 11/30/24 01:28 Nucleated RBC % (auto) 0 % 11/30/24 01:28 Nucleated RBCs # 0.0 /100WBC 11/30/24 01:28 PT 13.80 SECONDS (12.1-14.9) 11/30/24 01:28 INR 0.99 (0.8-1.2) 11/30/24 01:28 APTT 35.6 SECONDS (23.9-36.7) 11/30/24 01:28 Sodium 139 mmol/L (136-145) 11/30/24 01:28 Potassium 4.6 mmol/L (3.5-5.1) 11/30/24 01:28 Chloride 102 mmol/L (98-107) 11/30/24 01:28 Carbon Dioxide 23 mmol/L (22-29) 11/30/24 01:28 Anion Gap 18.6 (5-19) 11/30/24 01:28 BUN 24 mg/dL (8-23) H 11/30/24 01:28 Creatinine 1.4 mg/dL (0.7-1.2) H 11/30/24 01:28 GFR Calculation 50.5 mL/min (90-130) L 11/30/24 01:28 Glucose 128 mg/dL (65-115) H 11/30/24 01:28 Calculated Osmolality 294 mOsm/kg (285-295) 11/30/24 01:28 Calcium 8.8 mg/dL (8.5-10.5) 11/30/24 01:28 Total Bilirubin 0.2 mg/dL (0.15-1.2) 11/30/24 01:28 AST 17 U/L (0-40) 11/30/24 01:28 ALT 13 U/L (0-41) 11/30/24 01:28 Alkaline Phosphatase 96 U/L (40-130) 11/30/24 01:28 Troponin T Baseline 13 ng/L (0-15) 11/30/24 01:28 NT-Pro-B Natriuret Pep 372 pg/mL (0-125) H 11/30/24 01:28 Total Protein 6.4 g/dL (6.6-8.7) L 11/30/24 01:28 Albumin 3.5 g/dL (3.5-5.2) 11/30/24 01:28 Globulin 2.9 g/dL (1.3-4.6) 11/30/24 01:28 All radiology interpretation(s) finalized by discharge Discharge Plan Discharge Patient Disposition: Admitted As Inpatient Clinical Impression: PACKER (dyspnea on exertion), Pleural effusion on left Condition: Stable Coding Level of Care Code ED Machine Operator Transplanter for Brenton Hernandez
--- NOTE | 2024-11-30 03:05 | PM.HP ---
Providers/Chief Complaint Admitting Physician: Drea Gonzalez Primary Care Provider: Ha Montes DO Chief Complaint: sob History of Present Illness As per the previous notes and the patient Michael Joyner is a 69 year old male with past medical history of possible suspected malignant lung nodule based on the PET scan and also possible metastasis but not known to have any malignancy, peripheral vascular disease, atrial fibrillation, essential hypertension, COPD, GERD presented with shortness of breath that has been ongoing since 7 to 8 days gradual in onset without associated fever or chills. No abdominal pain chest pressure chest pain orthopnea or PND. The patient also reported on and off lower leg swellings but did not feel it is increasing from the last few days. Of note the patient has been evaluated for a lung nodule and underwent biopsy in [facility] however does not know the results of the biopsy. Patient is a current active smoker with 1-1/2 pack every day. No other drug abuse and no other alcohol intake. Review of Systems General: Reports: 10 or more systems reviewed and unremarkable except in HPI and below Medications/Allergies Home Medications ?Medication ?Instructions ?Recorded ?Confirmed ?Last Taken ?Type spironolactone 25 mg tablet 25 mg PO DAILY 07/31/23 09/14/24 Unknown History (Aldactone) aspirin 81 mg tablet,delayed 81 mg PO DAILY 03/16/24 09/14/24 Unknown History release (Adult Aspirin Regimen) furosemide 20 mg tablet 20 mg PO DAILY #90 tabs 03/16/24 09/14/24 Unknown Rx lisinopril 40 mg tablet 40 mg PO DAILY #90 tabs 03/16/24 09/14/24 Unknown Rx metoprolol succinate 25 mg 25 mg PO DAILY #90 tabs 03/16/24 09/14/24 Unknown Rx tablet,extended release 24 hr metoprolol succinate 50 mg 50 mg PO DAILY #90 tabs 03/16/24 09/14/24 Unknown Rx tablet,extended release 24 hr pantoprazole 40 mg tablet,delayed 40 mg PO DAILY #90 tabs 03/16/24 09/14/24 Unknown Rx release (Protonix) potassium chloride 8 mEq 8 meq PO DAILY #90 tabs 03/16/24 09/14/24 Unknown Rx tablet,extended release tiotropium bromide 18 mcg capsule 1 cap inhalation DAILY 30 days #60 03/16/24 09/14/24 Unknown Rx with inhalation device (Spiriva inhalations with HandiHaler) amlodipine 5 mg tablet See Rx Instructions .Route 10/26/24 Unknown Rx .COMPLEX #90 tabs Allergies Allergy/AdvReac Type Severity Reaction Status Date / Time Penicillins Allergy ALGY-Anaphy Verified 09/14/24 13:22 laxis PFSH Acute PFSH: Medical History (Updated 11/30/24 @ 03:09 by Ha Huber MD) Lung nodule PVD (peripheral vascular disease) with claudication Atrial fibrillation Renal artery stenosis Essential hypertension History of colon polyps GERD (gastroesophageal reflux disease) Family History Mother Cancer Breast CAD (coronary artery disease) Father Hypertension Cancer Colon and Thyroid Social History Smoking and tobacco/nicotine status: never used tobacco/nicotine Second hand smoke exposure: No Alcohol intake: current Alcohol intake frequency: holidays/special occasions only Substance/Drug Use: never Adopted: No Caregiver/support person: No Lives independently: Yes Vitals/I&O/Wt Last Vital Signs Temp 98.5 F 11/30/24 01:44 Pulse 84 11/30/24 02:22 Resp 21 H 11/30/24 02:22 BP 114/63 11/30/24 02:22 Pulse Ox 96 11/30/24 02:22 O2 Del Method Nasal Cannula 11/30/24 02:22 O2 Flow Rate 1 11/30/24 02:22 Weight last 48 hrs Weight 120.656 kg Physical Exam Narrative: General: Alert and oriented, lying comfortably without any distress, able to speak in full sentences and on BiPAP HEENT: Normocephalic, atraumatic, grossly unremarkable exam Cardio: normal rate rhythm, normal S1-S2 without any murmurs, rubs, or gallops and JVD normal Respiratory: normal vascular breathing with mild wheezes on both sides and reduced air entry from low to mid zone of left lung GI: Abdomen soft, nontender, nondistended, normoactive bowel sounds present all 4 quadrants, Neuro: intact cranial nerves motor and sensory and cerebellar/coordination function without any focal neurological deficit Behavior: Appropriate and cooperative Extremities: Adequate palpable pulses, mild trace edema Skin: grossly unremarkable exam Data 11/30/24 01:11/30/24 01:28 A&P Assessment and plan 1. Pleural effusion: Patient need drainage and further assessment of the left-sided pleural effusion CTA ruled out pulmonary embolism and mentioned about left large pleural effusion with mediastinal shifting to right Oxygen supplementation as per protocol IR guided versus interventional pulmonology consult to consider Keep the patient n.p.o. meanwhile for any further intervention in the morning. Hold any anticoagulation meanwhile including aspirin since patient may go for procedure in the morning. 2. COPD (chronic obstructive pulmonary disease): Continue DuoNebs scheduled 3. Multiple lung nodules on CT: History of suspected malignant lung nodules and now presented with left-sided pleural effusion. Consider radius corner machine operator consult and further management accordingly Need records from the previous biopsy results as per the history of the patient 4. GERD without esophagitis: PPI daily 5. Renal artery stenosis: Patient on antihypertensive medications and to continue Lisinopril 40 mg daily, amlodipine 10 mg daily and spironolactone 25 mg daily Hold antihypertensive if systolic blood pressure less than 100 mmHg 6. Uncontrolled hypertension: To continue home medication after reconciliation, amlodipine 10 mg daily and lisinopril 40 mg daily 7. Atrial fibrillation: Patient not on chronic anticoagulation as per review of the home medication Continue on metoprolol 75 mg daily. 8. PVD (peripheral vascular disease) with claudication: Patient on aspirin at home After medication reconciliation to continue home medication. PDMP PDMP Reviewed: Not Reviewed Attestations Medical Necessity Statement*: Patient will stay more than 2 midnights in the hospital for management of pleural effusion requiring drainage and further management accordingly Time Spent in Patient Care: 16 - 35 minutes (>than 50% of time spent in counselling and/or direct pt care on unit). Other Attestations: Patient condition has been discussed at length with the patient/family, I have independently reviewed the chart labs imaging/diagnostics/EKG. the goals of care and code status with the patient/family/NOK/legal leasing representative, and documented accordingly. The patient/family has been informed about the current condition and further plan of care. Agreed with the plan of care and understood without any language barrier. Every effort was made to ensure accuracy of swimming pool installer and servicer. Any obvious errors or omissions should be clarified with the author of the document. Coding Level of Care Code 66659 Diagnoses Pleural effusion J90 COPD (chronic obstructive pulmonary disease) J44.[address] R91.8 GERD without esophagitis K21.9 Renal artery stenosis I70.1 Uncontrolled hypertension I10 Atrial fibrillation I48.91 PVD (peripheral vascular disease) with claudication I73.9
[2024-11-30] MEDS: iohexol 350 mg/mL 500 mL Btl (per mL) IV (03:52)
[2024-11-30 03:56] LABS: Troponin 5 2HR 11.41 ng/L (0-15); Troponin 5 2HR Delta -1.59 ABS# (0-10)
--- NOTE | 2024-11-30 06:07 | US_ITS ---
WS: [id number] ULTRASOUND-GUIDED THORACENTESIS CLINICAL INFORMATION: left sided pleural effusion COMPARISON: None. PROCEDURE: Informed consent: The risks, benefits, and alternatives of the procedure were discussed with the patient. Verbal and written consent was obtained. Timeout: A timeout was performed to confirm the correct patient, procedure, and site. Site: LEFT Preparation: A suitable skin site was identified. The patient was prepped and draped in usual sterile fashion. Lidocaine 1% was used for local anesthesia. Catheter: 4 Welsh One-Step catheter. Fluid Volume: 1000 ml Color: Bloody serous Discarded safely. Sent to the laboratory for analysis. Complications: None. / thoracentesis [id number] IMPRESSION: Uncomplicated ultrasound-guided LEFT thoracentesis.
--- NOTE | 2024-11-30 06:09 | PC.NURSE ---
PT requested that his records from his recent biopsy be sent here for further review per hospitalist. Pt signed request form to have records faxed.
[2024-11-30] MEDS: levofloxacin-dextrose 5 % 750 MG/150 ML PREMIX 100 MG IV (06:38)
--- NOTE | 2024-11-30 06:51 | PC.NURSE ---
This nurse was instructed to hold 9am dose of heparin until pts procedure is done. This nurse passed on note to day shift and left a comment on the MAR.
[2024-11-30 06:56] LABS: Troponin 5 6HR 10.28 ng/L (0-15)
[2024-11-30 07:06] LABS: Troponin 5 6HR Delta -2.72 ng/L (0-12)
[2024-11-30 07:38] LABS: Respiratory Syncytial Virus Ce NEGATIVE (Negative); SARS-CoV-2 PCR NEGATIVE (Negative)
[2024-11-30 08:48] LABS: Coronavirus 229E,HKU1,NL63,OC4 Not Detected (NOT DETECT); Parainfluenza Virus Type 1 Not Detected (NOT DETECT); Parainfluenza Virus Type 2 Not Detected (NOT DETECT); Parainfluenza Virus Type 3 Not Detected (NOT DETECT); Parainfluenza Virus Type 4 Not Detected (NOT DETECT); SARS-COV-2 Not Detected (NOT DETECT)
[2024-11-30] MEDS: metoprolol succinate ER (24 HR) 25 mg Tablet PO (08:54)
[2024-11-30] MEDS: methylPREDNISolone sod succ 125 mg/2 mL INJ IVP (09:00)
--- NOTE | 2024-11-30 12:01 | XR_ITS ---
WS: [id number] XR chest 1V portable [id number] REASON FOR EXAM: POST THORACENTESIS FINDINGS: Decreased volume of the previously demonstrated large left pleural effusion. No hydropneumothorax. Residual atelectasis in the left lower lung. Chest is otherwise unchanged compared to the examination of 11/30/2024 at 2:05 a.m. XR/XR chest 1V portable [id number] IMPRESSION: Post left thoracentesis as above.
[2024-11-30 12:33] LABS: Apprearance, Body Fluid TURBID; Color, Body Fluid RED; Cyto Order Verification Order Verified
[2024-11-30 12:36] LABS: Body Fluid Polynuclear #Cells 4.539; Monocytes # Body Fluid 2.194; Mononuclear WBC Body Fluid % 32.500 %; Polynuclear WBC Body Fluid % 67.500 %
[2024-11-30 12:37] LABS: PATH Referral YES
[2024-11-30 12:38] LABS: Fluid Laterality LT PLEURAL FL
[2024-11-30 12:56] LABS: Triglycerides, Pleural Fluid 48 mg/dL
[2024-11-30 13:07] LABS: Hematocrit Body Fluid 20.1 %
--- NOTE | 2024-11-30 14:11 | PC.NURSE ---
lasix retimed due to not being given in er and it being a one time order, nurse unable to pull from pyxis.
[2024-11-30] MEDS: FUROsemide 10 mg/mL SDV 4mL 40 MG IVP (14:31)
--- NOTE | 2024-11-30 14:48 | P.PN_ITS ---
Subjective 2 Subjective: Patient was seen this morning, denies any fevers, no chills, no cough, does report shortness of breath, does report lower extremity edema, however shortness of breath is improving - He tells me that more than a week ago, he had a pulmonary nodule biopsied on the left at [facility] - He had a blood patch after the procedu re - Subsequently after the procedure he st arted developing pain at the biopsy site, some discomfort, - Which progressively worsened - But eventually he tells me that it imp roved, that he subsequently started developing shortness of breath - He reached out to his call center analyst at [facility], who set him up with a outpatient chest x-ray, which he has not completed - Denies any bloody cough, bloody vomit, lightheadedness or dizziness, no chest pain, no history of CHF, no falls, no injuries, no fevers, no chills - Discussed his CT of the chest findings , with a large left pleural effusion - Discussed plans on thoracentesis - Thoracentesis performed, 1 L of bloody serous fluid was removed - Chest x-ray postthoracentesis in my op inion shows that the large left pleural effusion has decreased by about 20%, but persists - Pleural fluid studies revealed that it is red, turbid, 391 RBCs, hematocrit 20.1, LDH 1000 - Concern for hemothorax -Concern patient will likely need VATS f or potential embolization of bleeding, will need CT surgery -Discussed the case with pulmonary Dr. Corrie person, given patient's recent history of pulmonary nodule biopsy on the same side, with blood patch, with now hemothorax raises the concern for bleeding from surgical biopsy site - Pulmonary recommends chest tube placem ent, CT surgery consultation for concern for bleeding from surgical site - Spoke to ER provider, Dr. Chi, o has agreed to place chest tube - In terms of removal of chest tube, man agement of patient's hemothorax, unfortunately do not have CT surgery services here at [facility] - I spoke to general surgery Dr. Rachelle loco to see if they could help manage the chest tube, management of hemothorax, potentially removal of the chest tube, management of complications however general surgery recommends transfer to tertiary level center for the need for VATS, CT surgery - I spoke to interventional pulmonary Dr Maggi Auguste to see if they could help manage the chest tube, management of hemothorax, potentially removal of the chest tube, management of complications however official pulmonary recommends transfer to tertiary level center for the need for VATS, CT surgery -Spoke to [facility] transfer line, omar marc to their CT surgery service, spoke to CT surgery, they recommend for us to place chest tube, recommend transfer for evaluation, however it could be over 48 hours before patient gets transferred due to availability of beds - Spoke to pulmonary Dr. Gonzalez, discuss ed plan, she agrees that chest tube insertion, Dr. Chi has been consulted will place chest tube, will monitor here at [facility] until patient gets a bed at [facility] - Repeat hemoglobin 12 - Discussed case in detail with Michael, discussed plans on chest tube insertion here at [facility] for hemothorax, discussed our concern for bleeding from his biopsy site due to appearance of his pleural fluid, and reaccumulation of hemothorax on postthoracentesis chest x-ray, need to transfer to tertiary level center for CT surgery evaluation for possible VATS, possible embolization of bleeding, management of hemothorax and chest tube - Discussed risks and benefits - He voiced understanding, all questions answered - Agreed to proceed Vitals/I&O/Wt Last Vital Signs Temp 98.5 F 11/30/24 01:44 Pulse 89 11/30/24 14:20 Resp 25 H 11/30/24 14:20 BP 120/69 11/30/24 14:20 Pulse Ox 95 11/30/24 14:20 O2 Del Method Room Air 11/30/24 13:26 O2 Flow Rate 1 11/30/24 02:22 FiO2 24 11/30/24 09:12 11/29/24 11/30/24 11/30/24 22:59 06:59 14:59 Intake Total 150 / 150 Output Total 600 / 600 800 / 800 Balance -600 / -600 -650 / -650 Weight last 48 hrs Weight 120.656 kg Physical Exam 2 Const: COMMON NORMALS: no acute distress and patient oriented x3 Resp: COMMON NORMALS: normal respiratory effort, No retractions and No use of accessory muscles OTHER: Decreased air movement left lung base Cardio: COMMON NORMALS: regular rate, regular rhythm, S1 normal heart sound present and S2 normal heart sound present RATE: regular rate RHYTHM: r egular rhythm HEART SOUNDS: S1 normal heart sound present and S2 normal heart sound present GI: COMMON NORMALS: Normal to inspection, nondistended, normoactive bowel sounds present and non-tender Extremity: COMMON NORMALS: no pedal edema Neuro: COMMON NORMALS: patient oriented x3 Psych: COMMON NORMALS: mental status grossly normal Data 11/30/24 15:51 11/30/24 01:28 Micro: Microbiology 11/30/24 06:33 Blood Culture - Preliminary Blood SPECIMEN COLLECTED 11/30/24 06:29 Blood Culture - Preliminary Blood SPECIMEN COLLECTED A&P Assessment and plan 1. Postprocedural hemothorax: Plan: Postprocedural hemothorax -Recent history of left lung nodule biopsy at [facility], received blood patch -CT angiogram of chest - CT/CT angio chest PE protcl [id number] IMPRESSION: 1. No acute pulmonary embolus or evidence of acute right heart strain. 2. Large left pleural effusion. 3. Small right pleural effusion. 4. Mass effect from large left pleural effusion resulting in rightward cardiomediastinal shift. - Status post ultrasound-guided thoracentesis, 1 L of bloody serous pleural fluid removed - Chest x-ray status post thoracentesis FINDINGS: Decreased volume of the previously demonstrated large left pleural effusion. No hydropneumothorax. Residual atelectasis in the left lower lung. Chest is otherwise unchanged compared to the examination of 11/30/2024 at 2:05 a.m. - Pleural studies are red, turbid, 6733 WBCs, RBCs 391, LDH 1000, pH 9, total protein 4.5, positive by lights criteria, hematocrit 20,% Plan - Chest tube placement by ER provider, will place to suction, monitor for more than 150 mL/hr of bloody output -Postprocedural chest x-ray to be ordered - IV Dilaudid for pain - Continue Levaquin - Monitor hemoglobin -Pulmonary consulted - Awaiting transfer to [facility] - Hold DVT prophylaxis, SCDs - Full code PDMP PDMP Reviewed: Not Reviewed Attestations 2 Medical Necessity Statement*: Requires hospitalization, inpatient, greater than 2 midnights, for postprocedural hemothorax, Coding Level of Care Code Critical Care >/= 30 minutes Critical care time (in minutes): 50 The high probability of a clinically significant, sudden or life threatening deterioration, as referenced in this documentation, required my full and direct attention, intervention and personal management. The critical care time shown is in addition to time spent performing any reported separately billable procedures and includes the following: [x] Data and vital sign review and interpretation [x ] Patient assessment, examination and intervention [x] Medication orders and management [x] Patient/Family updates as able [x] Care Coordination and Documentation. Diagnoses Postprocedural hemothorax
[2024-11-30 16:02] LABS: Hematocrit 37.3 % (37-53); Hemoglobin 12.10 g/dL (11.27-16.99); Mean Corpuscular HGB Conc 32.4 g/dL (30-55); Mean Corpuscular Hemoglobin 30.6 pg (27-33); Mean Corpuscular Volume 94.2 fl (82-101); Nucleated Red Blood Cells % 0 %; Platelet Count 369 10^3/cmm (157-399); Red Blood Count 3.96 10^6/uL (3.85-5.65); White Blood Count 7.84 10^3/uL (3.29-11.43)
--- NOTE | 2024-11-30 17:40 | P.TS_ITS ---
Transfer Summary Providers Date of Admission: 11/30/24 03:03 Date of Discharge/Transfer: 12/01/24 Attending Provider at Admission: Drea Gonzalez MD Attending Provider at Transfer: Jose Alberto Feldman MD Primary Care Provider: Ha Montes DO Transfer Plans: Anticipated date of transfer: 12/01/24 . Diagnoses at Discharge Discharge Diagnosis 1. Postprocedural hemothorax: Reason for Visit Reason for Visit sob Hospital Course Hospital Course Patient was admitted to [facility] for shortness of breath, left chest discomfort, with recent history of pulmonary nodule biopsy at [facility] in [place] Patient was seen this morning, denies any fevers, no chills, no cough, does report shortness of breath, does report lower extremity edema, however shortness of breath is improving - He tells me that more than a week ago, he had a pulmonary nodule biopsied on the left at [facility] - He had a blood patch after the procedure - Subsequently after the procedure he started developing pain at the biopsy site, some discomfort, - Which progressively worsened - But eventually he tells me that it improved, that he subsequently started developing shortness of breath - He reached out to his dyeing machine feeder at [facility], who set him up with a outpatient chest x-ray, which he has not completed - Denies any bloody cough, bloody vomit, lightheadedness or dizziness, no chest pain, no history of CHF, no falls, no injuries, no fevers, no chills - Discussed his CT of the chest findings, with a large left pleural effusion - Discussed plans on thoracentesis - Thoracentesis performed, 1 L of bloody serous fluid was removed - Chest x-ray postthoracentesis in my opinion shows that the large left pleural effusion has decreased by about 20%, but persists - Pleural fluid studies revealed that it is red, turbid, 391 RBCs, hematocrit 20.1, LDH 1000 - Concern for hemothorax -Concern patient will likely need VATS for potential embolization of bleeding, will need CT surgery -Discussed the case with pulmonary Dr. Gonzalez, given patient's recent history of pulmonary nodule biopsy on the same side, with blood patch, with now hemothorax raises the concern for bleeding from surgical biopsy site - Pulmonary recommends chest tube placement, CT surgery consultation for concern for bleeding from surgical site - Spoke to ER provider, Dr. Chi, who has agreed to place chest tube - In terms of removal of chest tube, management of patient's hemothorax, unfortunately do not have CT surgery services here at [facility] - I spoke to general surgery Dr. Campa to see if they could help manage the chest tube, management of hemothorax, potentially removal of the chest tube, management of complications however general surgery recommends transfer to tertiary level center for the need for VATS, CT surgery - I spoke to interventional pulmonary Dr. Auguste to see if they could help manage the chest tube, management of hemothorax, potentially removal of the chest tube, management of complications however official pulmonary recommends transfer to tertiary level center for the need for VATS, CT surgery -Spoke to [facility] transfer line, spoke to their CT surgery service, spoke to CT surgery, they recommend for us to place chest tube, recommend transfer for evaluation, however it could be over 48 hours before patient gets transferred due to availability of beds - Spoke to pulmonary Dr. Gonzalez, discussed plan, she agrees that chest tube insertion, Dr. Chi has been consulted will place chest tube, will monitor here at [facility] until patient gets a bed at [facility] - Repeat hemoglobin 12 - Discussed case in detail with Michael, discussed plans on chest tube insertion here at [facility] for hemothorax, discussed our concern for bleeding from his biopsy site due to appearance of his pleural fluid, and reaccumulation of hemothorax on postthoracentesis chest x-ray, need to transfer to tertiary level center for CT surgery evaluation for possible VATS, possible embolization of bleeding, management of hemothorax and chest tube - Discussed risks and benefits - He voiced understanding, all questions answered - Agreed to proceed - Patient had successful placement of left chest tube by ER provider - Currently normotensive, remains on room air, no significant evidence of tachycardia - Chest tube is to waterseal - He has had about 1300 mL of bloody output - Patient is alert oriented x 3, following all commands, no chest pain, no shortness of breath, remains hemodynamically stable, - Preliminary review of chest x-ray shows chest tube in correct position - Patient's chest tube remains to waterseal, and watched very closely, bloody output remains about 30, 100 mL - Nonetheless I have placed an order for 2 units of emergency packed red blood cells, 1 unit FFP, loading dose of transaminase acid - Patient is currently alert awake - Discussed with patient that my worry is his hemothorax although clinically improved on chest x-ray, area of biopsy site is continuing to bleed, and is going to need urgent CT surgery evaluation, potentially IR embolization of bleeding - His last hemoglobin is stable, but given 1300 mL of bloody output, will give him 2 units PRBC - Remains hemodynamically stable - [facility] has been called, urgently transfer patient to [facility] - Subsequently reexamined between 6 to this 6:45 PM, remains hemodynamically stable, nursing staff are working giving him first unit of blood, - Output remains stable at about 1300 mL, frankly bloody, spoke to [facility] gave them updates - Patient remains alert oriented x 3, follow commands, hemodynamically stable, no significant tachycardia remains on room air, pain is well-controlled - Patient was transferred to [facility] in [place] via air [facility], seen bleeding his room at about 7:05 PM Postprocedural hemothorax -Recent history of left lung nodule biopsy at [facility], received blood patch -CT angiogram of chest - CT/CT angio chest PE protcl [id number] IMPRESSION: 1. No acute pulmonary embolus or evidence of acute right heart strain. 2. Large left pleural effusion. 3. Small right pleural effusion. 4. Mass effect from large left pleural effusion resulting in rightward cardiomediastinal shift. - Status post ultrasound-guided thoracentesis, 1 L of bloody serous pleural fluid removed - Chest x-ray status post thoracentesis FINDINGS: Decreased volume of the previously demonstrated large left pleural effusion. No hydropneumothorax. Residual atelectasis in the left lower lung. Chest is otherwise unchanged compared to the examination of 11/30/2024 at 2:05 a.m. - Pleural studies are red, turbid, 6733 WBCs, RBCs 391, LDH 1000, pH 9, total protein 4.5, positive by lights criteria, hematocrit 20,% Plan - Chest tube placement by ER provider, will place to suction, monitor for more than 150 mL/hr of bloody output -Postprocedural chest x-ray to be ordered - IV Dilaudid for pain - Continue Levaquin - Monitor hemoglobin -Pulmonary consulted - Awaiting transfer to [facility] - Hold DVT prophylaxis, SCDs - Full code Physical Exam Const: COMMON NORMALS: no acute distress and patient oriented x3 Chest: OTHER: Left chest tube site looks clean and dry, dressing on top - Has chest tube system hooked up - Currently on waterseal - 1400 mL of dark red blood Resp: COMMON NORMALS: normal respiratory effort, No retractions, No use of accessory muscles and clear to auscultation bilaterally AUSCULTATION: clear to auscultation bilaterally Cardio: COMMON NORMALS: regular rate, regular rhythm, S1 normal heart sound present and S2 normal heart sound present RATE: regular rate RHYTHM: regular rhythm HEART SOUNDS: S1 normal heart sound present and S2 normal heart sound present GI: COMMON NORMALS: Normal to inspection, nondistended, normoactive bowel sounds present and non-tender Extremity: COMMON NORMALS: no calf tenderness and no pedal edema Neuro: COMMON NORMALS: patient oriented x3 Psych: COMMON NORMALS: mental status grossly normal TS Data Studies Completed and Pending Pending at discharge Category Date Time Status Amylase, Pleural Fluid Routine Lab 11/30/24 11:45 Received Blood Culture Stat Lab 11/30/24 06:33 Results Body Fluid Culture & GS Routine Lab 11/30/24 11:45 Results Complete Blood Count w/Auto AM LABS Lab 12/01/24 04:00 Ordered Comprehensive Metabolic Panel AM LABS Lab 12/01/24 04:00 Ordered Mycobacteria, Culture w/Fluor Routine Lab 11/30/24 11:45 Received Sputum Culture Stat Lab 11/30/24 06:13 Uncollected Cytology [PTH] Routine Pth 11/30/24 11:45 Received CV. echo complete* [id number] Routine Ultrasound 11/30/24 11:13 Ordered Completed Studies During Hospitalization Category Date Time Status CTA PE [CT angio chest PE protcl [id number]] Stat Cat Scan 11/30/24 02:48 Completed XR chest 1V portable [id number] Routine Exams 11/30/24 12:01 Completed XR chest 1V portable [id number] Stat Exams 11/30/24 02:03 Completed US thoracentesis [id number] Routine Ultrasound 11/30/24 06:07 Completed Laboratory Last Values WBC 7.84 10^3/uL (3.29-11.43) 11/30/24 15:51 RBC 3.96 10^6/uL (3.85-5.65) 11/30/24 15:51 Hgb 12.10 g/dL (11.27-16.99) 11/30/24 15:51 Hct 37.3 % (37-53) 11/30/24 15:51 MCV 94.2 fl (82-101) 11/30/24 15:51 MCH 30.6 pg (27-33) 11/30/24 15:51 MCHC 32.4 g/dL (30-55) 11/30/24 15:51 RDW 13.2 % (12.1-15.1) 11/30/24 15:51 Plt Count 369 10^3/cmm (157-399) 11/30/24 15:51 MPV 9.3 fL (7.4-10.4) 11/30/24 15:51 Neut % (Auto) 94.6 % 11/30/24 15:51 Lymph % (Auto) 3.2 % 11/30/24 15:51 Butler % (Auto) 0.9 % 11/30/24 15:51 Eos % (Auto) 0.4 % 11/30/24 15:51 Baso % (Auto) 0.6 % 11/30/24 15:51 Neut # (Auto) 7.42 10^3/uL (1.8-7.7) 11/30/24 15:51 Lymph # (Auto) 0.3 10^3/uL (0.8-4.8) L 11/30/24 15:51 Butler # (Auto) 0.1 10^3/uL (0.2-0.9) L 11/30/24 15:51 Eos # (Auto) 0.0 10^3/uL (0.0-0.8) 11/30/24 15:51 Baso # (Auto) 0.1 10^3/uL (0.0-0.1) 11/30/24 15:51 Nucleated RBC % (auto) 0 % 11/30/24 15:51 Nucleated RBCs # 0.0 /100WBC 11/30/24 15:51 Differential Comment Yes 11/30/24 11:45 PT 13.80 SECONDS (12.1-14.9) 11/30/24 01:28 INR 0.99 (0.8-1.2) 11/30/24 01:28 APTT 35.6 SECONDS (23.9-36.7) 11/30/24 01:28 Sodium 139 mmol/L (136-145) 11/30/24 01:28 Potassium 4.6 mmol/L (3.5-5.1) 11/30/24 01:28 Chloride 102 mmol/L (98-107) 11/30/24 01:28 Carbon Dioxide 23 mmol/L (22-29) 11/30/24 01:28 Anion Gap 18.6 (5-19) 11/30/24 01:28 BUN 24 mg/dL (8-23) H 11/30/24 01:28 Creatinine 1.4 mg/dL (0.7-1.2) H 11/30/24 01:28 GFR Calculation 50.5 mL/min (90-130) L 11/30/24 01:28 Glucose 128 mg/dL (65-115) H 11/30/24 01:28 Calculated Osmolality 294 mOsm/kg (285-295) 11/30/24 01:28 Calcium 8.8 mg/dL (8.5-10.5) 11/30/24 01:28 Total Bilirubin 0.2 mg/dL (0.15-1.2) 11/30/24 01:28 AST 17 U/L (0-40) 11/30/24 01:28 ALT 13 U/L (0-41) 11/30/24 01:28 Alkaline Phosphatase 96 U/L (40-130) 11/30/24 01:28 Lactate Dehydrogenase 160 U/L (135-225) 11/30/24 01:28 Troponin T Baseline 13 ng/L (0-15) 11/30/24 01:28 Troponin T 120 Minute 11.41 ng/L (0-15) 11/30/24 03:24 Delta Troponin T -1.59 ABS# (0-10) L 11/30/24 03:24 Troponin T Hi Sens 6Hr 10.28 ng/L (0-15) 11/30/24 06:29 Troponin T Hi Sens 6Hr Delta -2.72 ng/L (0-12) L 11/30/24 06:29 NT-Pro-B Natriuret Pep 372 pg/mL (0-125) H 11/30/24 01:28 Total Protein 6.4 g/dL (6.6-8.7) L 11/30/24 01:28 Albumin 3.5 g/dL (3.5-5.2) 11/30/24 01:28 Globulin 2.9 g/dL (1.3-4.6) 11/30/24 01:28 Fluid Color Red 11/30/24 11:45 Fluid Appearance Turbid 11/30/24 11:45 Fluid WBC 6733 /uL 11/30/24 11:45 Fluid RBC 391.000 10^3/uL 11/30/24 11:45 Fluid Hematocrit 20.1 % 11/30/24 11:45 Fluid Hematocrit Cancelled 11/30/24 11:45 Fld Polynuclear WBCs # 4.539 11/30/24 11:45 Fld Polynuclear WBCs % 67.500 % 11/30/24 11:45 Fl Mononucl WBCs #(Auto) 2.194 11/30/24 11:45 Fl Mononuclear % Auto 32.500 % 11/30/24 11:45 Fld Crystal Laterality Lt pleural fl 11/30/24 11:45 Fluid Albumin 2.9 g/dL 11/30/24 11:45 Fluid Creatinine 0.9 (0.7-1.2) 11/30/24 11:45 Pleural pH 9.00 (6.5-7.5) H 11/30/24 11:45 Pleural Total Protein 4.5 g/dL 11/30/24 11:45 Pleural LDH 1000 U/L 11/30/24 11:45 Pleural Glucose 123.0 mg/dL 11/30/24 11:45 Pleural Triglycerides 48 mg/dL 11/30/24 11:45 Adenovirus (PCR) Not detected (NOT DETECT) 11/30/24 06:45 C. pneumoniae DNA (PCR) Not detected (NOT DETECT) 11/30/24 06:45 Coronavirus 229E (PCR) Not detected (NOT DETECT) 11/30/24 06:45 Human Metapneumovir PCR Not detected (NOT DETECT) 11/30/24 06:45 Influenza A (H1) PCR Not detected (NOT DETECT) 11/30/24 06:45 Influenza A (PCR) Negative (Negative) 11/30/24 06:45 Influ A (H1/09) PCR Not detected (NOT DETECT) 11/30/24 06:45 Influenza A (H3) PCR Not detected (NOT DETECT) 11/30/24 06:45 Influenza Type A (PCR) Not detected (NOT DETECT) 11/30/24 06:45 Influenza Type B (PCR) Negative (Negative) 11/30/24 06:45 Influenza Type B (PCR) Not detected (NOT DETECT) 11/30/24 06:45 M. pneumoniae (PCR) Not detected (NOT DETECT) 11/30/24 06:45 Parainfluenza 1 (PCR) Not detected (NOT DETECT) 11/30/24 06:45 Parainfluenza 2 (PCR) Not detected (NOT DETECT) 11/30/24 06:45 Parainfluenza 3 (PCR) Not detected (NOT DETECT) 11/30/24 06:45 Parainfluenza 4 (PCR) Not detected (NOT DETECT) 11/30/24 06:45 RSV (PCR) Negative (Negative) 11/30/24 06:45 RSV Type A (PCR) Not detected (NOT DETECT) 11/30/24 06:45 RSV Type B (PCR) Not detected (NOT DETECT) 11/30/24 06:45 Entero/Rhino (PCR) Not detected (NOT DETECT) 11/30/24 06:45 SARS-CoV-2 (PCR) Negative (Negative) 11/30/24 06:45 SARS-CoV-2 (PCR) Not detected (NOT DETECT) 11/30/24 06:45 Radiology Impressions Chest CTA 11/30/24 02:48 IMPRESSION: 1. No acute pulmonary embolus or evidence of acute right heart strain. 2. Large left pleural effusion. 3. Small right pleural effusion. 4. Mass effect from large left pleural effusion resulting in rightward cardiomediastinal shift. Thoracentesis Ultrasound 11/30/24 06:07 IMPRESSION: Uncomplicated ultrasound-guided LEFT thoracentesis. Chest X-Ray 11/30/24 12:01 IMPRESSION: Post left thoracentesis as above. Recent Clincial Data Last Vital Signs Temp 97.6 F 11/30/24 16:00 Pulse 99 11/30/24 16:00 Resp 16 11/30/24 16:00 BP 133/66 11/30/24 16:00 Pulse Ox 97 11/30/24 16:00 O2 Del Method Room Air 11/30/24 13:26 O2 Flow Rate 1 11/30/24 02:22 FiO2 24 11/30/24 09:12 Vital Signs Temp Pulse Resp BP Pulse Ox O2 Del Method FiO2 11/30/24 16:00 97.6 F 99 16 133/66 97 11/30/24 14:20 89 25 H 120/69 95 11/30/24 14:00 93 11/30/24 14:00 83 21 H 120/69 95 11/30/24 13:40 86 19 H 120/69 94 11/30/24 13:37 85 19 H 11/30/24 13:26 Room Air 11/30/24 13:16 86 118/72 95 11/30/24 11:53 84 126/73 95 Room Air 11/30/24 11:41 84 127/82 95 Room Air 11/30/24 11:37 103 H 127/82 93 Room Air 11/30/24 09:15 77 11/30/24 09:12 74 100 24 11/30/24 09:10 77 20 H 93 Room Air Intake & Output/Weight 11/28/24 11/29/24 11/30/24 12/01/24 06:59 06:59 06:59 06:59 Intake Total 150 / 150 Output Total 600 / 600 800 / 800 Balance -600 / -600 -650 / -650 Weight 120.656 kg Vitals Last Vital Signs Temp 97.6 F 11/30/24 16:00 Pulse 99 11/30/24 16:00 Resp 16 11/30/24 16:00 BP 133/66 11/30/24 16:00 Pulse Ox 97 11/30/24 16:00 O2 Del Method Room Air 11/30/24 13:26 O2 Flow Rate 1 11/30/24 02:22 FiO2 24 11/30/24 09:12 TS Medications Medications Acetaminophen (Acetaminophen 325 Mg Tablet) 650 mg PO Q6H PRN PRN Reason: Mild/Mod Pain Or Temp >/= 101 Al Hydrox/Mg Hydrox/Simethicone (Zril-Akj-Mjdzvrqju-Ana 30 Ml Udc) 15 ml PO Q6H PRN PRN Reason: INDIGESTION Albuterol/Ipratropium (Ipratropium-Albuterol 3 Ml Neb) 3 ml INHALATION Q6H PRN PRN Reason: SHORTNESS OF BREATH Last Admin: 11/30/24 09:10 Dose: 3 ml Amlodipine Besylate (Amlodipine 10 Mg Tablet) 10 mg PO DAILY [facility] Last Admin: 11/30/24 08:54 Dose: 10 mg Bisacodyl (Bisacodyl 5 Mg Tablet) 10 mg PO DAILY PRN; Protocol PRN Reason: Constipation (see protocol) Famotidine (Famotidine 20 Mg Tablet) 20 mg PO BID [facility] Last Admin: 11/30/24 08:55 Dose: 20 mg Hydromorphone HCl (Hydromorphone 0.5 Mg/0.5 Ml Inj) 1 mg IVP Q4H PRN PRN Reason: PAIN Levofloxacin/Dextrose (Levaquin-D5w) 750 mg in 150 mls @ 100 mls/hr IV Q24H [facility]; Protocol Last Infusion: 11/30/24 08:59 Dose: Infused Lisinopril (Lisinopril 20 Mg Tablet) 40 mg PO DAILY [facility] Last Admin: 11/30/24 08:56 Dose: 40 mg Metoprolol Succinate (Metoprolol Succinate Er (24 Hr) 25 Mg Tablet) 25 mg PO DAILY [facility] Last Admin: 11/30/24 08:54 Dose: 25 mg Ondansetron HCl (Ondansetron 2 Mg/Ml Sdv 2 Ml) 4 mg IVP Q8H PRN PRN Reason: vomiting, or N/V if npo Spironolactone (Spironolactone 25 Mg Tablet) 25 mg PO DAILY [facility] Last Admin: 11/30/24 08:53 Dose: 25 mg Discontinued Medications Fentanyl (Fentanyl 50 Mcg/Ml Inj 2ml) Confirm Administered Dose 100 mcg .ROUTE .STK-MED ONE Stop: 11/30/24 17:30 Fentanyl (Fentanyl 50 Mcg/Ml Inj 2ml) 100 mcg IVP ONCE ONE Stop: 11/30/24 17:32 Furosemide (Furosemide 20 Mg Tablet) 20 mg PO DAILY [facility] Last Admin: 11/30/24 08:55 Dose: 20 mg Furosemide (Furosemide 10 Mg/Ml Sdv 4ml) 40 mg IVP ONCE ONE Stop: 11/30/24 11:14 Last Admin: 11/30/24 14:32 Dose: Not Given Furosemide (Furosemide 10 Mg/Ml Sdv 4ml) 40 mg IVP ONCE ONE Stop: 11/30/24 14:11 Last Admin: 11/30/24 14:31 Dose: 40 mg Heparin Sodium (Porcine) (Heparin 5,000 Unit/Ml Inj 1 Ml) 5,000 unit SUBCUT Q12H [facility] Last Admin: 11/30/24 11:49 Dose: Not Given Hydromorphone HCl (Hydromorphone 4 Mg Tablet) 2 mg PO Q6H PRN PRN Reason: SEVERE PAIN Hydromorphone HCl (Hydromorphone Tab 2 Mg Tablet) 2 mg PO Q6H PRN PRN Reason: SEVERE PAIN Lidocaine HCl (Xylocaine) Confirm Administered Dose 20 mls @ as directed .ROUTE .STK-MED ONE Stop: 11/30/24 17:34 Iohexol (Iohexol 350 Mg/Ml 500 Ml Btl (Per Ml)) 0 ml IV ONCE ONE Stop: 11/30/24 03:53 Last Admin: 11/30/24 03:52 Dose: 90 ml Lidocaine HCl (Lidocaine 1% Inj 20 Ml) 20 ml IM ONCE ONE Stop: 11/30/24 17:33 Methylprednisolone Sodium Succinate (Methylprednisolone Sod Succ 125 Mg/2 Ml Inj) 125 mg IVP ONCE ONE Stop: 11/30/24 08:40 Last Admin: 11/30/24 09:00 Dose: 125 mg Midazolam HCl (Midazolam 1 Mg/Ml Inj 2 Ml) Confirm Administered Dose 6 mg .ROUTE .STK-MED ONE Stop: 11/30/24 17:33 Midazolam HCl (Midazolam 1 Mg/Ml Inj 2 Ml) 6 mg IVP ONCE ONE Stop: 11/30/24 17:32 Morphine Sulfate (Morphine 4 Mg/Ml Sdv 1 Ml) 2 mg IVP Q4H PRN PRN Reason: SEVERE PAIN Allergies Penicillins Allergy (Verified 09/14/24 13:22) ALGY-Anaphylaxis Home Medications spironolactone 25 mg tablet (Aldactone) 25 mg PO [facility] 07/31/23 [History Confirmed 11/30/24] aspirin 81 mg tablet,delayed release (Adult Aspirin Regimen) 81 mg PO QAM 03/16/24 [History Confirmed 11/30/24] furosemide 20 mg tablet 20 mg PO DAILY #90 tabs 03/16/24 [Rx Confirmed 11/30/24] lisinopril 40 mg tablet 40 mg PO DAILY #90 tabs 03/16/24 [Rx Confirmed 11/30/24] pantoprazole 40 mg tablet,delayed release (Protonix) 40 mg PO DAILY #90 tabs 03/16/24 [Rx Confirmed 11/30/24] potassium chloride 8 mEq tablet,extended release 8 meq PO DAILY #90 tabs 03/16/24 [Rx Confirmed 11/30/24] tiotropium bromide 18 mcg capsule with inhalation device (Spiriva with HandiHaler) 1 cap inhalation DAILY 30 days #60 inhalations 03/16/24 [Rx Confirmed 11/30/24] amlodipine 5 mg tablet See Rx Instructions .Route .COMPLEX #90 tabs 10/26/24 [Rx Confirmed 11/30/24] metoprolol succinate 25 mg tablet,extended release 24 hr 25 mg PO QPM 11/30/24 [History Confirmed 11/30/24] metoprolol succinate 50 mg tablet,extended release 24 hr 50 mg PO QAM 11/30/24 [History Confirmed 11/30/24] Discharge Plan Discharge Patient Disposition: Home Condition: Stable Prescriptions: No Action aspirin [Adult Aspirin Regimen] 81 mg tablet,delayed release (DR/EC) 81 mg PO QAM furosemide 20 mg tablet 20 mg PO DAILY Qty: 90 3RF lisinopril 40 mg tablet 40 mg PO DAILY Qty: 90 3RF pantoprazole [Protonix] 40 mg tablet,delayed release (DR/EC) 40 mg PO DAILY Qty: 90 3RF potassium chloride 8 mEq tablet extended release 8 meq PO DAILY Qty: 90 3RF Spiriva with HandiHaler 18 mcg capsule, w/inhalation device 1 cap inhalation DAILY 30 Days Qty: 60 11RF Rx Instructions: puncture 1 cap using device; one dose = 2 inhalations spironolactone [Aldactone] 25 mg tablet 25 mg PO QAM amlodipine 5 mg tablet See Rx Instructions .ROUTE .COMPLEX Qty: 90 3RF Dose Instruction: TAKE 2 TABLETS BY MOUTH EVERY DAY Rx Instructions: TAKE 2 TABLETS BY MOUTH EVERY EVENING. metoprolol succinate 50 mg tablet extended release 24 hr 50 mg PO QAM metoprolol succinate 25 mg tablet extended release 24 hr 25 mg PO QPM Referrals: Ha Montes DO [Primary Care Provider, [facility]] Patient Instructions: Opioid Safety, Patient Portal & Floyd Instructions Transfer Attestations Time Spent in Transfer Care: critical care time Critical Care Time (min): 60 Quality Metrics Clinical Quality Measures [ No reported AMI, CVA or VTE this stay] Coding Level of Care Code Critical Care >/= 30 minutes Critical care time (in minutes): 60 The high probability of a clinically significant, sudden or life threatening deterioration, as referenced in this documentation, required my full and direct attention, intervention and personal management. The critical care time shown is in addition to time spent performing any reported separately billable procedures and includes the following: [x] Data and vital sign review and interpretation [x ] Patient assessment, examination and intervention [x] Medication orders and management [x] Patient/Family updates as able [x] Care Coordination and Documentation. Diagnoses Postprocedural hemothorax
--- NOTE | 2024-11-30 18:04 | XRR_ITS ---
PROCEDURE INFORMATION: Exam: XR Chest Exam date and time: 11/30/2024 6:10 PM Age: 69 years old Clinical indication: Device placement; Chest tube; Additional info: Chest tube insertion TECHNIQUE: Imaging protocol: Radiologic exam of the chest. Views: 1 view. COMPARISON: CR XR chest 1V portable [id number] 11/30/2024 12:04 PM FINDINGS: Lungs: Increased interstitial opacities present involving the right mid and lower lung field. The right lung is relatively clear. Pleural spaces: New left-sided thoracostomy tube with small left-sided pneumothorax. Mild residual left pleural effusion. Heart/Mediastinum: The heart is stable in size. Bones/joints: Unremarkable. XR/XR chest 1V portable [id number] IMPRESSION: 1. New left-sided thoracostomy tube with tiny left-sided pneumothorax. Mild persistent left pleural effusion. 2. Increased interstitial opacities in the left mid and lower lung field which may reflect re-expansion pulmonary edema or pneumonitis.
--- NOTE | 2024-11-30 18:15 | P.PNCC_ITS ---
Critical Care Event Note Was consulted by Dr. Lee to place a thoracostomy tube on patient. Patient had a large pleural effusion they had done a thoracentesis earlier he had a mediastinal shift is having increasing pain. Patient consented for conscious sedation and the procedure. 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 We discussed choices for conscious sedation chose fentanyl and Versed. Patient tolerated the procedure well had approximately 200 mL output at the time the chest tube was placed it was immediately clamped. Tube was then secured in place sterile dressing applied and attached to waterseal. Patient recovered from conscious sedation well. I had planned to pull about another 200 mL off and then leave to waterseal however when staff attached to the Pleur-evac he had almost instant output of 1500 to 1600 mL per their report. Tube was placed to waterseal. Patient had transient decrease in blood pressure Dr. Feldman is managing. Post procedure chest x-ray reviewed. Critical Care Time Code activated: No Critical Care Time (min): 0 Procedures Chest Tube^ Chest Tube 1: Chest tube location: Mid-Axillary Chest Size of tube: 28 Chest tube procedure: Yes sterile drapes applied and other Tube sutured to skin: Yes Sterile dressing applied: Yes Anesthesia: 1% Lidocaine Volume anesthetic (ml): 15 Incision made with: #10 blade Post procedure: sutured to skin and sterile dressing applied Palm of air heard: No (Patient did not have pneumothorax had hemothorax) Tube Drainage: fluid (Serosanguineous fluid) Amount of initial drainage (ml): 100 Post procedure CXR?: Yes Patient tolerated procedure: Yes Procedural Sedation Indications: other (Chest tube placement) ASA class: I Time of last PO intake: 12:00 Preparation: vehicle monitor technician applied, pulse oximeter, supplemental O2 applied, suction/airway equipment at bedside and IV secured Fentanyl: IV Fentanyl dose (mcg): 75 Midazolam: IV Midazolam dose (mg): 6 Patient tolerated procedure: well Complications: none Coding Level of Care Code Acute Code for Chg Fwd
[2024-11-30] MEDS: fentaNYL 50 mcg/mL INJ 2mL 100 MCG IVP (18:53)
[2024-11-30] MEDS: midazolam 1 mg/mL INJ 2 mL 6 MG IVP (18:54)
[2024-11-30] MEDS: HYDROmorphone 0.5 MG/0.5 ML INJ 1 MG IVP (18:54)
[2024-11-30] MEDS: lidocaine 1% INJ 20 mL IM (19:06)
--- NOTE | 2024-11-30 19:08 | PC.NURSE ---
patient had chest tube inserted after hemathorax was found in patient. Dr Chi came down to insert chest tube with Mele, RN, Lizette RN, and Mago, RN at bedside. 6 of versed and 100 of fentanyl pluls lidocaine was given at bedside. After chest tube was inserted, patient had stat chest xray and immediately put out 1350 of sanguineous fluid. Patient blood pressures remained stable at this time. Patient during this time was accepted at [facility] in [place]. Report called to [facility] and Robert Faulkner was notified. After seeing the amount of blood loss and concern for patient's condition, Dr Feldman diecided to send the patient via [facility]. While waiting for [facility], nurse started a unit of blood emergently. Second unit hanging at bedside. New IV also started. Air evac arrived and report was given. 1mg of dilaudid after patient said the fentanyl was starting to wear off and to reduce pain during the ride to [place]. The patient's belongings were returned to him from the [facility] and all belongings bagged up. Imaging reports send electronically to [facility]. Patient stable at time of transfer. Dr Feldman at bedside at time of transfer as well. Patient alert and oriented. The paperwork for emergent blood was given to lab. The fentanyl and versed was put in the sharps box in the med room. The lidocaine bottles were not found.
[2024-12-05 06:09] LABS: Amylase, Pleural Fluid 14 U/L
== END 2024-11-30 19:05 | disposition short-term general hospital (02) | DRG 920 ==
LOC: ER 03:19 → ER IP 03:38 → CSU 12:15
PROVIDERS: Admitting Provider Student in an Organized Health Care Education/Training Program; Emergency Provider Student in an Organized Health Care Education/Training Program; PCP Family Medicine; Visit Provider Family Medicine
DX: J95.861 Postprocedural hematoma of a respiratory system organ or structure following other procedure (principal); J90 Pleural effusion, not elsewhere classified; J44.9 Chronic obstructive pulmonary disease, unspecified; I48.91 Unspecified atrial fibrillation; F17.210 Nicotine dependence, cigarettes, uncomplicated; I73.9 Peripheral vascular disease, unspecified; I70.1 Atherosclerosis of renal artery; I10 Essential (primary) hypertension; R91.8 Other nonspecific abnormal finding of lung field; K21.9 Gastro-esophageal reflux disease without esophagitis; Z79.82 Long term (current) use of aspirin; Z95.810 Presence of automatic (implantable) cardiac defibrillator; Z87.01 Personal history of pneumonia (recurrent); Z86.0100 Personal history of colon polyps, unspecified
CPT/HCPCS: 32555; 36415; 71045; 71275; 80053; 80503; 82042; 82150; 82570; 82945; 83615; 83880; 83986; 84157; 84478; 84484; 85014; 85025; 85610; 85730; 86850; 86900; 86920; 87015; 87040; 87070; 87075; 87116; 87205; 87206; 87486; 87581; 87633; 87637; 87801; 88112; 88305; 89050; 93005; 94640; 94660; 94799; 96365; 96372; 96375; 99291; J1171; J1938; J1956; J2250; J2919; J3010; J9999; P9016

== ENCOUNTER 2024-12-15 13:51 | Outpatient (CLI) | payer MEDICARE, BC, SELFPAY ==
--- NOTE | 2024-12-15 13:57 | XR_ITS ---
WS: [id number] XR chest 2V* [id number] REASON FOR EXAM: J93.9 - Pneumothorax, unspecified FINDINGS: The heart and the mediastinum are within normal limits. Calcified granulomatous disease bilaterally. Blunting of the costophrenic angles which could indicate the presence of small effusions. Significant flattening of the hemidiaphragms No acute pulmonary parenchymal abnormality. XR/XR chest 2V* [id number] IMPRESSION: Possible small effusions. Hyperexpansion without acute lung abnormality.
== END 2024-12-15 13:52 | disposition home or self-care (01) ==
LOC: RAD 13:53
PROVIDERS: PCP Family Medicine; Visit Provider Family Medicine
DX: J93.9 Pneumothorax, unspecified (principal); Z98.890 Other specified postprocedural states; J98.4 Other disorders of lung; J98.6 Disorders of diaphragm
CPT/HCPCS: 71046